=== PATIENT | female | born 1940 | race Caucasian/White ===

== ENCOUNTER 2016-04-23 16:51 | Inpatient (IN) | payer OTHER, BC ==
[2016-04-23 18:42] LABS: MCH 30.9 pg (25.7-33.7); MEAN CELL VOLUME 93.5 fl (80-96); PLATELET COUNT 286 K/MM3 (134-434); RDW 13.8 % (11.6-15.6); WHITE BLOOD COUNT 14.5 K/mm3 (4.0-10.0)
[2016-04-23 18:48] LABS: INR 1.25 (0.82-1.09); PROTHROMBIN TIME (PATIENT) 13.8 SEC (9.98-11.88)
[2016-04-23 18:51] LABS: ACTIVATED PTT 34.2 SECONDS (26.9-34.4)
[2016-04-23 19:06] LABS: ALBUMIN 2.7 g/dl (3.4-5.0); ANION GAP 14 (8-16); BILIRUBIN,TOTAL 0.6 mg/dL (0.2-1.0); CO2 24 mmol/L (21-32); CREATININE 1.1 mg/dL (0.55-1.02); GLUCOSE,RANDOM 81 mg/dL (74-106); SGOT/AST 56 U/L (15-37); SGPT/ALT 41 U/L (12-78)
[2016-04-23 19:09] LABS: ALK PHOS 210 U/L (45-117); TROPONIN I < 0.02 ng/ml (0.00-0.05); URINE APPEARANCE CLEAR; URINE BILIRUBIN NEGATIVE (NEGATIVE); URINE BLOOD NEGATIVE (NEGATIVE); URINE COLOR YELLOW; URINE GLUCOSE (UA) NEGATIVE (NEGATIVE); URINE KETONE TRACE (NEGATIVE); URINE NITRITE NEGATIVE (NEGATIVE); URINE UROBILINOGEN 2.0 E.U/dl E.U./dl (0.2-1.0)
[2016-04-23 19:10] LABS: URINE LEUK ESTERASE 2+ (NEGATIVE); URINE PROTEIN 1+ (NEGATIVE)
[2016-04-23 19:15] LABS: URINE RBC 6 /hpf (0-3); URINE WBC 10 /hpf (3-5)
[2016-04-23 19:33] LABS: PLATELET ESTIMATE ADEQUATE (NORMAL)
[2016-04-23 19:34] LABS: TOXIC GRANULATION 1+
[2016-04-23] MEDS ORDERED: VANCOMYCIN 1,250 MG in DEXTROSE 5%-WATER - 250 ML IVPB ONE (19:34)
[2016-04-23] MEDS ORDERED: POTASSIUM CHLORIDE 10 MEQ in SODIUM CHLORIDE 1,000 ML IVPB SCH (20:00)
--- NOTE | 2016-04-23 20:07 | PDOC ---
History of Present Illness - General Chief Complaint: Respiratory Stated Complaint: PCP SENT/SHORTNESS OF BREATH Time Seen by Provider: 04/23/16 16:57 - History of Present Illness Initial Comments: 04/23/16 19:53 CHIEF COMPLAINT: cough, fever x 4 days HISTORY OF PRESENT ILLNESS: 76 yo F with hx of HTN, HLD, and "arrhythmia" was sent to ED by PCP for c/o of cough, body ache, and fever x 4 days. Patient states she has "chronic post nasal drip" and cough but she has had a "mild fever " between ranges of 98.9F to 100.1F over the past 4 days. She states that she and her are "really involved in the community" and were "running around like crazy" last week. She went to sleep "exhausted" early on Thursday and when she woke up on Thursday she started feeling generalized body aches and discomfort. 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 She was seen by her PCP Dr. Nubia Devine and given ceforuxime and azithromycin and told that if her symptoms did not improve in 24 hours that she would need to come to the ER. She reports no relief of her symptoms and so was instructed to come here today. PAST MEDICAL HISTORY: as per HPI FAMILY HISTORY: Denies SOCIAL HISTORY: Lives at home with . Current smoker, 10 cigs daily. Denies alcohol, illicit drug use. SURGICAL HISTORY: gallbladder, tonsillectomy ALLERGIES: No known drug allergies REVIEW OF SYSTEMS General/Constitutional: Fever x 4 days, generalized weakness/body aches. HEENT: Denies change in vision. Denies ear pain or discharge. Denies sore throat. Cardiovascular: Denies chest pain or shortness of breath. Respiratory: Chronic cough. Denies wheezing, or hemoptysis. Gastrointestinal: Denies nausea, vomiting, diarrhea or constipation. Denies rectal bleeding. Genitourinary: Denies dysuria, frequency, or change in urination. Musculoskeletal: Denies joint or muscle swelling or pain. Denies neck or back pain. Skin: Denies rash or easy bruising. Neurologic: Headache. Denies vertigo, loss of consciousness, or loss of sensation. PHYSICAL EXAM General Appearance: Well-appearing, appropriately dressed. No apparent distress , no intoxication. HEENT: EOMI, PERRLA, normal ENT inspection, normal voice, TMs normal, pharynx normal. No conjunctival pallor. No photophobia, scleral icterus. Neck: Supple. Trachea midline. No tenderness, rigidity, carotid bruit, stridor , lymphadenopathy, or thyromegaly. Respiratory/Chest: Crackles to R lower lobe.No shortness of breath, chest tenderness, respiratory distress, accessory muscle use. No rales, stridor, wheezing, dullness. Cardiovascular: RRR. S1, S2. No JVD, murmur, bradycardia, tachycardia. Vascular Pulses: Dorsalis-Pedis (R): 2+, Dorsalis-Pedis (L): 2+ Gastrointestinal/Abdominal: Normal bowel sounds. Abdomen soft, non-distended. No tenderness or rebound tenderness. No organomegaly, pulsatile mass, guarding , hernia, hepatomegaly, splenomegaly. Lymphatic: No adenopathy, tenderness. Musculoskeletal/Extremities: Normal inspection. FROM of all extremities, normal capillary refill. Pelvis Stable. No CVA tenderness. No tenderness to extremities, pedal edema, swelling, erythema or deformity. Integumentary: Appropriate color, dry, warm. No cyanosis, erythema, jaundice or rash Neurologic: auto washer II-XII intact. Fully oriented, alert. Appropriate mood/affect. Motor strength 5/5. No appreciable EOM palsy, facial droop or sensory deficit. 04/23/16 20:17 04/23/16 20:23 Past History - Past Medical History Allergies/Adverse Reactions: Allergies Allergy/AdvReac Type Severity Reaction Status Date / Time gatifloxacin [From Tequin] Allergy Verified 04/23/16 16:55 meperidine HCl [From Demerol] Allergy Verified 04/23/16 16:55 Home Medications: Ambulatory Orders Alpha Lipoic Acid 200 mg PO HS 06/26/15 Aspirin [ASA -] 81 mg PO DAILY 06/26/15 Atorvastatin Ca [Lipitor] 20 mg PO HS 06/26/15 Cholecalciferol (Vitamin D3) [Vitamin D3 -] 1,000 unit PO DAILY 06/26/15 Cinnamon Bark [Cinnamon] 500 mg PO BID 06/26/15 Levothyroxine [Synthroid -] 75 mcg PO DAILY 06/26/15 Levothyroxine [Synthroid -] 88 mcg PO DAILY 06/26/15 Melatonin 3 mg PO HS 06/26/15 Metoprolol Succinate [Toprol XL -] 100 mg PO BID 06/26/15 Multivit-Min/FA/Lycopen/Lutein [Centrum Silver Tablet] 1 each PO DAILY 06/26/15 Lactobacillus Acidophilus [Bacid -] 1 tab PO DAILY tab 04/28/16 Levofloxacin [Levaquin -] 500 mg PO DAILY #7 tablet 04/28/16 Diabetes: Yes (diet controlled) HTN: Yes Hypercholesterolemia: Yes Thyroid Disease: Yes - Surgical History Cholecystectomy: Yes - Psycho/Social/Smoking Cessation Hx Anxiety: No Suicidal Ideation: No Smoking History: Current every day smoker Have you smoked in the past 12 months: Yes Number of Cigarettes Smoked Daily: 10 Information on smoking cessation initiated: Yes 'Breaking Loose' booklet given: 04/23/16 Hx Alcohol Use: No Drug/Substance Use Hx: No Substance Use Type: None *Physical Exam - Vital Signs Last Vital Signs Temp Pulse Resp BP Pulse Ox 99.9 F H 128 H 20 119/68 93 L 04/23/16 16:55 04/23/16 16:55 04/23/16 16:55 04/23/16 16:55 04/23/16 16:55 ED Treatment Course - LABORATORY CBC & Chemistry Diagram: 04/29/16 06:45 04/29/16 06:45 - ADDITIONAL ORDERS Additional order review: Laboratory Results 04/23/16 04/23/16 04/23/16 17:45 17:45 17:45 INR PTT (Actin FS) Sodium 132 L Potassium 3.3 L Chloride 94 L Carbon Dioxide 24 Anion Gap 14 BUN 19 H D Creatinine 1.1 H D Creat Clearance w eGFR 48.04 Random Glucose 81 D Lactic Acid 2.305 H* Calcium 8.0 L Total Bilirubin 0.6 AST 56 H D ALT 41 D Alkaline Phosphatase 210 H D Creatine Kinase 48 Troponin I < 0.02 Total Protein 7.0 Albumin 2.7 L D Urine Color Yellow Urine Appearance Clear Urine pH 6.0 Ur Specific [place] 1.019 Urine Protein 1+ H Urine Glucose (UA) Negative Urine Ketones Trace H Urine Blood Negative Urine Nitrite Negative Urine Bilirubin Negative Urine Urobilinogen 2.0 e.u/dl H Ur Leukocyte Esterase 2+ H Urine RBC 6 Urine WBC 10 Ur Epithelial Cells Rare 04/23/16 17:45 INR 1.25 H PTT (Actin FS) 34.2 Sodium Potassium Chloride Carbon Dioxide Anion Gap BUN Creatinine Creat Clearance w eGFR Random Glucose Lactic Acid Calcium Total Bilirubin AST ALT Alkaline Phosphatase Creatine Kinase Troponin I Total Protein Albumin Urine Color Urine Appearance Urine pH Ur Specific [place] Urine Protein Urine Glucose (UA) Urine Ketones Urine Blood Urine Nitrite Urine Bilirubin Urine Urobilinogen Ur Leukocyte Esterase Urine RBC Urine WBC Ur Epithelial Cells 04/23/16 17:00 Influenza Types A,B Antigen (SIMON) - Final Nasopharyngeal Swab - Final 04/23/16 17:45 RBC 4.25 MCV 93.5 MCHC 33.0 RDW 13.8 MPV 9.0 Neutrophils % 78.0 D Lymphocytes % 7.0 L D Monocytes % 5.0 Basophils % 1.0 Medical Decision Making - Medical Decision Making 04/23/16 20:22 76 yo F with hx of HTN, HLD, and "arrhythmia" was sent to ED by PCP for c/o of cough, body ache, and fever x 4 days. -septic workup ordered in E Labs: CBC - WBC 14.7, lactic acid 2.3, K+ 3.3 -Vanc, Zosyn IVPB for sepsis coverage. -IVF - NS + 20K @ 75cc EKG - NSR with PAC, read by myself and MD Hargrove 04/23/16 20:28 CXR suggestive of RLL pneumonia. Patient has already taken one dose of cefuroxime today. Zosyn d/c, will start Ceftriaxone with po azithromycin. Discussed case with patient's PCP Nilson who accepts patient for inpatient admission. Patient admitted to med/surg. *DC/Admit/Observation/Transfer Diagnosis at time of Disposition: Pneumonia Qualifiers: Pneumonia type: due to unspecified organism Laterality: right Lung location: lower lobe of lung Qualified Code(s): J18.9 - Pneumonia, unspecified organism - Discharge Dispostion Disposition: HOME Condition at time of disposition: Improved Admit: Yes - Prescriptions
--- NOTE | 2016-04-23 20:11 | PDOC ---
*Physical Exam - Vital Signs Last Vital Signs Temp Pulse Resp BP Pulse Ox 99.9 F H 128 H 20 119/68 93 L 04/23/16 16:55 04/23/16 16:55 04/23/16 16:55 04/23/16 16:55 04/23/16 16:55 ED Treatment Course - LABORATORY CBC & Chemistry Diagram: 04/23/16 17:45 04/23/16 17:45 - ADDITIONAL ORDERS Additional order review: Laboratory Results 04/23/16 04/23/16 04/23/16 17:45 17:45 17:45 INR PTT (Actin FS) Sodium 132 L Potassium 3.3 L Chloride 94 L Carbon Dioxide 24 Anion Gap 14 BUN 19 H D Creatinine 1.1 H D Creat Clearance w eGFR 48.04 Random Glucose 81 D Lactic Acid 2.305 H* Calcium 8.0 L Total Bilirubin 0.6 AST 56 H D ALT 41 D Alkaline Phosphatase 210 H D Creatine Kinase 48 Troponin I < 0.02 Total Protein 7.0 Albumin 2.7 L D Urine Color Yellow Urine Appearance Clear Urine pH 6.0 Ur Specific [place] 1.019 Urine Protein 1+ H Urine Glucose (UA) Negative Urine Ketones Trace H Urine Blood Negative Urine Nitrite Negative Urine Bilirubin Negative Urine Urobilinogen 2.0 e.u/dl H Ur Leukocyte Esterase 2+ H Urine RBC 6 Urine WBC 10 Ur Epithelial Cells Rare 04/23/16 17:45 INR 1.25 H PTT (Actin FS) 34.2 Sodium Potassium Chloride Carbon Dioxide Anion Gap BUN Creatinine Creat Clearance w eGFR Random Glucose Lactic Acid Calcium Total Bilirubin AST ALT Alkaline Phosphatase Creatine Kinase Troponin I Total Protein Albumin Urine Color Urine Appearance Urine pH Ur Specific [place] Urine Protein Urine Glucose (UA) Urine Ketones Urine Blood Urine Nitrite Urine Bilirubin Urine Urobilinogen Ur Leukocyte Esterase Urine RBC Urine WBC Ur Epithelial Cells 04/23/16 17:00 Influenza Types A,B Antigen (SIMON) - Final Nasopharyngeal Swab - Final 04/23/16 17:45 RBC 4.25 MCV 93.5 MCHC 33.0 RDW 13.8 MPV 9.0 Neutrophils % 78.0 D Lymphocytes % 7.0 L D Monocytes % 5.0 Basophils % 1.0 Medical Decision Making - Medical Decision Making 04/23/16 20:11 agree with care from KANDY Guillaume *DC/Admit/Observation/Transfer Diagnosis at time of Disposition: Pneumonia
[2016-04-23] MEDS: SODIUM CHLORIDE 0.9%/KCL 1,000 ML IV SCH (20:47)
[2016-04-23] MEDS ORDERED: ACETAMINOPHEN 1000 MG/100 ML VIAL (NON FORMULARY) IVPB ONE (21:30)
[2016-04-23] MEDS ORDERED: ACETAMINOPHEN INJECTION 100 ML IVPB ONE (21:36)
[2016-04-23] MEDS ORDERED: AMPICILLIN NA/SULBACTAM NA 3 GM in SODIUM CHLORIDE 100 ML IVPB ONE (21:47)
[2016-04-23] MEDS ORDERED: AZITHROMYCIN 250 MG TABLET (FP) PO ONE (22:05)
[2016-04-23] MEDS ORDERED: ACETAMINOPHEN 325 MG TABLET (FP) PO PRN (22:37)
[2016-04-23] MEDS ORDERED: AZITHROMYCIN 250 MG TABLET (FP) ONE (23:23)
[2016-04-23] MEDS: D5-1/2NS+20 MEQ KCL - 1,000 ML IV SCH (23:39)
[2016-04-24] MEDS: ALBUTEROL SO4 0.083% IH SOL 2.5 MG/3 ML VIAL.NEB. NEB SCH ×3 (00:03→23:26)
[2016-04-24] MEDS ORDERED: AMPICILLIN NA/SULBACTAM NA 1.5 GM in SODIUM CHLORIDE 100 ML IVPB SCH (03:00)
[2016-04-24] MEDS: AMPICILLIN NA/SULBACTAM NA 1.5 GM/100 ML PRE-DOCKED IVPB SCH ×3 (04:15→15:49)
[2016-04-24 05:54] VITALS: BMI 26.6
[2016-04-24] MEDS: LEVOTHYROXINE NA 75 MCG TABLET (FP) PO SCH (06:30)
--- NOTE | 2016-04-24 07:18 | HP ---
Admitting History and Physical - Admission History of Present Illness: 76 yo F with hx of HTN, HLD, and "arrhythmia" was sent to ED by PCP for c/o of cough, body ache, and fever x 4 days. Patient states she has "chronic post nasal drip" and cough but she has had a "mild fever" between ranges of 98.9F to 100.1F over the past 4 days. She states that she and her are "really involved in the community" and were "running around like crazy" last week. She went to sleep "exhausted" early on Thursday and when she woke up on Thursday she started feeling generalized body aches and discomfort. 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 She was seen in office and given ceftin and azithromycin and told that if her symptoms did not improve in 24 hours tand was sent to the ER. - Past Medical History Cardiovascular: Yes: HTN, Hyperlipdemia Pulmonary: No: Asthma Gastrointestinal: No: Cancer Endocrine: Yes: Diabetes Mellitus, Hypothyroidism - Smoking History Smoking history: Current every day smoker Have you smoked in the past 12 months: Yes Aproximately how many cigarettes per day: 10 - Alcohol/Substance Use Hx Alcohol Use: No Home Medications - Allergies Allergies/Adverse Reactions: Allergies Allergy/AdvReac Type Severity Reaction Status Date / Time gatifloxacin [From Tequin] Allergy Verified 04/23/16 16:55 meperidine HCl [From Demerol] Allergy Verified 04/23/16 16:55 - Home Medications Home Medications: Ambulatory Orders Alpha Lipoic Acid 200 mg PO DAILY 06/26/15 Aspirin [ASA -] 81 mg PO DAILY 06/26/15 Atorvastatin Ca [Lipitor] 20 mg PO HS 06/26/15 Cholecalciferol (Vitamin D3) [Vitamin D3 -] 1,000 unit PO DAILY 06/26/15 Cinnamon Bark [Cinnamon] 2,000 mg PO DAILY 06/26/15 Hydrochlorothiazide [Hctz -] 25 mg PO DAILY 06/26/15 Levothyroxine [Synthroid -] 75 mcg PO DAILY 06/26/15 Levothyroxine [Synthroid -] 75 mcg PO DAILY 06/26/15 Melatonin 3 mg PO HS 06/26/15 Metoprolol Succinate [Toprol Xl -] 100 mg PO BID 06/26/15 Multivit-Min/FA/Lycopen/Lutein [Centrum Silver Tablet] 1 each PO DAILY 06/26/15 Quinapril HCl [Accupril] 40 mg PO DAILY 06/26/15 Review of Systems - Review of Systems Constitutional: reports: Fever, Malaise, Weakness Cardiovascular: denies: Chest Pain, Edema Respiratory: reports: Cough, SOB on Exertion Gastrointestinal: denies: Abdominal Pain Genitourinary: reports: No Symptoms Physical Examination Vital Signs: Vital Signs Temperature 98.2 F 04/24/16 02:37 Pulse Rate 73 04/24/16 02:37 Respiratory Rate 18 04/24/16 02:37 Blood Pressure 124/63 04/24/16 02:37 O2 Sat by Pulse Oximetry (%) 93 L 04/24/16 02:37 Cardiovascular: Yes: Regular Rate and Rhythm Respiratory: Yes: Diminished, On Nasal O2, Rales Gastrointestinal: Yes: Normal Bowel Sounds, Soft Edema: No Imaging - Results X-ray: Report Reviewed Problem List - Problems (1) Pneumonia Assessment/Plan: IV ABX NEBS ID CONSULT Code(s): J18.9 - PNEUMONIA, UNSPECIFIED ORGANISM Qualifiers: Pneumonia type: due to unspecified organism Laterality: right Lung location: lower lobe of lung Qualified Code(s): J18.9 - Pneumonia, unspecified organism (2) HTN (hypertension) Assessment/Plan: MONITOR Code(s): I10 - ESSENTIAL (PRIMARY) HYPERTENSION (3) Hypokalemia Assessment/Plan: RPT Code(s): E87.6 - HYPOKALEMIA (4) Lactic acid acidosis Assessment/Plan: IVF ABX Code(s): E87.2 - ACIDOSIS
[2016-04-24 08:26] LABS: BASOPHIL 0.7 % (0-2.0); MCH 31.8 pg (25.7-33.7); MCHC 34.1 g/dl (32.0-36.0); MEAN CELL VOLUME 93.4 fl (80-96); MEAN PLT VOLUME 8.3 fl (7.5-11.1); NEUTROPHILS 71.7 % (42.8-82.8); PLATELET COUNT 225 K/MM3 (134-434); RDW 13.7 % (11.6-15.6); WHITE BLOOD COUNT 10.1 K/mm3 (4.0-10.0)
[2016-04-24 09:00] LABS: CALCIUM 7.4 mg/dL (8.5-10.1)
[2016-04-24 09:08] LABS: ALBUMIN 2.1 g/dl (3.4-5.0); ALK PHOS 143 U/L (45-117); ANION GAP 11 (8-16); BILIRUBIN,TOTAL 0.6 mg/dL (0.2-1.0); CO2 25 mmol/L (21-32); CREATININE 0.8 mg/dL (0.55-1.02); GLUCOSE,RANDOM 61 mg/dL (74-106); MAGNESIUM 2.1 mg/dL (1.8-2.4); SGOT/AST 45 U/L (15-37); SGPT/ALT 30 U/L (12-78); TOT PROT 5.5 g/dl (6.4-8.2)
[2016-04-24] MEDS ORDERED: AZITHROMYCIN IVPB 500 MG in DEXTROSE 5%-WATER - 250 ML IVPB SCH (10:00)
[2016-04-24] MEDS: METOPROLOL SUCCINATE 100 MG TAB.SR.24H (FP) PO SCH ×2 (10:28→22:18)
[2016-04-24] MEDS: ASPIRIN 81 MG CHEWABLE TABLETS PO SCH (10:28)
[2016-04-24] MEDS: AZITHROMYCIN IVPB 500 MG/250 ML D5W PRE-DOCKED IVPB SCH (10:28)
[2016-04-24] MEDS: HEPARIN NA (PORCINE) 5,000 UNITS/ML 1ML VIAL SQ SCH ×2 (10:28→22:18)
[2016-04-24] MEDS: KCL 10 MEQ IVPB 100 ML IVPB SCH ×2 (13:00→15:50)
--- NOTE | 2016-04-24 14:44 | EKG ---
Test Reason : Blood Pressure : / mmHG Vent. Rate : 078 BPM Atrial Rate : 078 BPM P-R Int : 150 ms QRS Dur : 102 ms QT Int : 412 ms P-R-T Axes : 012 039 040 degrees QTc Int : 469 ms SINUS RHYTHM WITH PREMATURE ATRIAL COMPLEXES OTHERWISE NORMAL ECG WHEN COMPARED WITH ECG OF 23-APR-2016 23:55, PREMATURE ATRIAL COMPLEXES ARE NOW PRESENT Confirmed by JAYLYN HUSSEIN, KARYNA ([id number]) on 04/24/2016 2:44:15 PM Referred By: TYRA SCALES Confirmed By:KARYNA DE LA O MD
--- NOTE | 2016-04-24 15:00 | EKG ---
Test Reason : Blood Pressure : / mmHG Vent. Rate : 100 BPM Atrial Rate : 100 BPM P-R Int : 138 ms QRS Dur : 100 ms QT Int : 362 ms P-R-T Axes : -01 018 045 degrees QTc Int : 466 ms SINUS RHYTHM WITH PREMATURE ATRIAL COMPLEXES OTHERWISE NORMAL ECG WHEN COMPARED WITH ECG OF 03-APR-2013 11:01, PREMATURE VENTRICULAR COMPLEXES ARE NO LONGER PRESENT VENT. RATE HAS INCREASED BY 42 BPM Confirmed by JAYLYN HUSSEIN, KARYNA ([id number]) on 04/24/2016 3:00:29 PM Referred By: Confirmed By:KARYNA DE LA O MD
--- NOTE | 2016-04-24 17:08 | PN ---
Progress Note (short form) - Note Progress Note: ID Consult dictated R sided pneumonia- likely recent viral syndrome with superimposed bacterial pneumonia Possible sepsis secondary to pneumonia Tobacco use Await cultures, legionella/ pneumococcal ag Empiric zithromax/ ceftriaxone Would obtain CT in this pt with moderately heavy tobacco use
--- NOTE | 2016-04-24 17:56 | CONS ---
DATE OF CONSULTATION: DATE OF DICTATION: 04/24/2016 INFECTIOUS DISEASE CONSULTATION HISTORY OF PRESENT ILLNESS: The patient is a 76-year-old female active smoker evaluated for pneumonia. The patient states she began to feel unwell approximately 1 week ago on ThursdayApril 18. She experienced profound weakness and fatigue. She subsequently developed an upper respiratory tract syndrome with dry cough. She experienced some low grade fever and body ache. She was seen as an outpatient where an influenza swab was performed and was negative. She was prescribed oral Zithromax and cefuroxime which she took for approximately 1-2 days; however, her condition worsened. She presented to the emergency room where a chest x-ray showed a right sided infiltrate. Patient reports cough which is dry. She denies any sputum production or hemoptysis. No pleuritic type chest pain. She has low grade fever. The patient lives at home with her significant other who is in good health without respiratory tract illness. 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 She is an active smoker, smoking approximately 8 to 10 cigarettes a day, denies any recent travel. She is up to date with respect to influenza and pneumococcal vaccines. PAST MEDICAL HISTORY: Includes hypertension, hyperlipidemia. PAST SURGICAL HISTORY: Status post cholecystectomy. ALLERGIES: MEPERIDINE (hallucinations during childbirth), and GATIFLOXACIN (hypoglycemia). MEDICATION: Aspirin, Lipitor, hydrochlorothiazide, Synthroid, Toprol, Accupril. SOCIAL HISTORY: As per HPI. LABORATORY DATA: White count on admission 14.5, presently 10.1. Hematocrit 33.6, platelet count 225, creatinine 0.8. PHYSICAL EXAMINATION: General: She is awake and alert. She is in no acute respiratory distress . She is congested. Vital signs: Temperature 99.3, blood pressure 124/66, pulse 80 regular, respirations 18 per minute, breathing is nonlabored. HEENT: Sclerae anicteric. Cardiovascular: Heart sounds S1, S2. Respiratory: Lungs crepitations right, mid, and lower lung field. No wheezing or rhonchi. Abdomen: Soft. No tenderness elicited. No mass, rebound, or rigidity. Extremities: Negative for edema. IMPRESSION: 1. Right sided pneumonia, likely recent viral syndrome with superimposed bacterial pneumonia. 2. Possible sepsis secondary to pneumonia. 3. Tobacco use. Await sputum and blood cultures. Obtain legionella and pneumococcal antigens. Empiric antibiotic coverage with Zithromax and ceftriaxone. Would obtain a CAT scan in this patient with moderately heavy tobacco use. Thank you for the kind referral. TYRA TAYLOR M.D. [id number]
[2016-04-24] MEDS: CEFTRIAXONE 100 ML IVPB SCH (18:12)
[2016-04-24] MEDS ORDERED: PIPERACILLIN/TAZOB 3.375 GM/50 ML PRE-DOCKED IVPB ONE (19:35)
[2016-04-24] MEDS: ATORVASTATIN CA 20 MG TABLET (FP) PO SCH (22:17)
[2016-04-24] MEDS: SODIUM CHLORIDE 0.9%/KCL 1,000 ML IV SCH (22:54)
[2016-04-25] MEDS: LEVOTHYROXINE NA 75 MCG TABLET (FP) PO SCH (06:54)
[2016-04-25] MEDS: ALBUTEROL SO4 0.083% IH SOL 2.5 MG/3 ML VIAL.NEB. NEB SCH ×3 (07:31→17:28)
[2016-04-25] MEDS: AZITHROMYCIN IVPB 500 MG/250 ML D5W PRE-DOCKED IVPB SCH (10:47)
[2016-04-25] MEDS: ASPIRIN 81 MG CHEWABLE TABLETS PO SCH (10:48)
[2016-04-25] MEDS: HEPARIN NA (PORCINE) 5,000 UNITS/ML 1ML VIAL SQ SCH ×2 (10:48→21:15)
[2016-04-25] MEDS: METOPROLOL SUCCINATE 100 MG TAB.SR.24H (FP) PO SCH ×2 (10:48→21:15)
[2016-04-25] MEDS: CEFTRIAXONE 100 ML IVPB SCH (10:48)
[2016-04-25] MEDS ORDERED: BENZOCAINE/MENTH/CETYLPYRD CL 1 EACH LOZENGE MM PRN (11:58)
--- NOTE | 2016-04-25 12:02 | PN ---
Progress Note, Physician History of Present Illness: C/O COUGH - Current Medication List Current Medications: Active Medications Acetaminophen (Tylenol -) 650 mg PO Q4H PRN PRN Reason: FEVER OR PAIN Albuterol Sulfate (Ventolin 0.083% Nebulizer Soln -) 1 amp NEB QIDR [facility] Last Admin: 04/25/16 07:31 Dose: 1 amp Aspirin (Asa -) 81 mg PO DAILY [facility] Last Admin: 04/25/16 10:48 Dose: 81 mg Atorvastatin Calcium (Lipitor -) 20 mg PO HS [facility] Last Admin: 04/24/16 22:17 Dose: 20 mg Azithromycin (Zithromax 500mg Ivpb (Pre-Docked)) 500 mg IVPB DAILY [facility] Last Admin: 04/25/16 10:47 Dose: 500 mg Benzocaine/Menthol (Cepacol Lozenge -) 1 each MM PRN PRN PRN Reason: SORE THROAT Heparin Sodium (Porcine) (Heparin -) 5,000 unit SQ BID [facility] Last Admin: 04/25/16 10:48 Dose: 5,000 unit Potassium Chloride/Sodium Chloride (Ns+20 Meq Kcl -) 1,000 mls @ 75 mls/hr IV ASDIR [facility] Last Admin: 04/24/16 22:54 Dose: 75 mls/hr Potassium Chloride/Dextrose/Sod Cl (D5-1/2ns+20 Meq Kcl -) 1,000 mls @ 75 mls/ hr IV ASDIR [facility] Last Admin: 04/23/16 23:39 Dose: Not Given Ceftriaxone Sodium (Rocephin 2gm Ivpb (Pre-Docked)) 100 mls @ 200 mls/hr IVPB DAILY [facility] Last Admin: 04/25/16 10:48 Dose: 200 mls/hr Lactobacillus Acidophilus (Bacid -) 1 tab PO DAILY [facility] Levothyroxine Sodium (Synthroid -) 75 mcg PO DAILY@0700 [facility] Last Admin: 04/25/16 06:54 Dose: 75 mcg Metoprolol Succinate (Toprol Xl -) 100 mg PO BID [facility] Last Admin: 04/25/16 10:48 Dose: 100 mg - Objective Vital Signs: Vital Signs Temperature 98.5 F 04/25/16 06:50 Pulse Rate 78 04/25/16 06:50 Respiratory Rate 20 04/25/16 06:50 Blood Pressure 119/70 04/25/16 06:50 O2 Sat by Pulse Oximetry (%) 95 04/24/16 21:00 Cardiovascular: Yes: Regular Rate and Rhythm Respiratory: Yes: Diminished, Rales, Rhonchi Gastrointestinal: Yes: Normal Bowel Sounds, Soft Labs: CBC, BMP 04/24/16 07:00 04/24/16 07:00 INR, PTT INR 1.25 (0.82-1.09) H 04/23/16 17:45 Problem List - Problems (1) Pneumonia Assessment/Plan: IV ABX NEBS ID CONSULT CT OF CHEST Code(s): J18.9 - PNEUMONIA, UNSPECIFIED ORGANISM Qualifiers: Pneumonia type: due to unspecified organism Laterality: right Lung location: lower lobe of lung Qualified Code(s): J18.9 - Pneumonia, unspecified organism (2) HTN (hypertension) Assessment/Plan: MONITOR Code(s): I10 - ESSENTIAL (PRIMARY) HYPERTENSION (3) Hypokalemia Assessment/Plan: RPT Code(s): E87.6 - HYPOKALEMIA (4) Lactic acid acidosis Assessment/Plan: IVF ABX Code(s): E87.2 - ACIDOSIS (5) Sepsis Assessment/Plan: ABX MONITOR Code(s): A41.9 - SEPSIS, UNSPECIFIED ORGANISM
--- NOTE | 2016-04-25 12:05 | PN ---
Progress Note, Physician History of Present Illness: Still with cough- whitish sputum No c/o chest pain/ dyspnea No c/o fever/chills CT shows patchy R consolidation - Current Medication List Current Medications: Active Medications Acetaminophen (Tylenol -) 650 mg PO Q4H PRN PRN Reason: FEVER OR PAIN Albuterol Sulfate (Ventolin 0.083% Nebulizer Soln -) 1 amp NEB QIDR [facility] Last Admin: 04/25/16 07:31 Dose: 1 amp Aspirin (Asa -) 81 mg PO DAILY [facility] Last Admin: 04/25/16 10:48 Dose: 81 mg Atorvastatin Calcium (Lipitor -) 20 mg PO HS [facility] Last Admin: 04/24/16 22:17 Dose: 20 mg Azithromycin (Zithromax 500mg Ivpb (Pre-Docked)) 500 mg IVPB DAILY [facility] Last Admin: 04/25/16 10:47 Dose: 500 mg Benzocaine/Menthol (Cepacol Lozenge -) 1 each MM PRN PRN PRN Reason: SORE THROAT Heparin Sodium (Porcine) (Heparin -) 5,000 unit SQ BID [facility] Last Admin: 04/25/16 10:48 Dose: 5,000 unit Potassium Chloride/Sodium Chloride (Ns+20 Meq Kcl -) 1,000 mls @ 75 mls/hr IV ASDIR [facility] Last Admin: 04/24/16 22:54 Dose: 75 mls/hr Potassium Chloride/Dextrose/Sod Cl (D5-1/2ns+20 Meq Kcl -) 1,000 mls @ 75 mls/ hr IV ASDIR [facility] Last Admin: 04/23/16 23:39 Dose: Not Given Ceftriaxone Sodium (Rocephin 2gm Ivpb (Pre-Docked)) 100 mls @ 200 mls/hr IVPB DAILY [facility] Last Admin: 04/25/16 10:48 Dose: 200 mls/hr Levothyroxine Sodium (Synthroid -) 75 mcg PO DAILY@0700 [facility] Last Admin: 04/25/16 06:54 Dose: 75 mcg Metoprolol Succinate (Toprol Xl -) 100 mg PO BID [facility] Last Admin: 04/25/16 10:48 Dose: 100 mg - Objective Vital Signs: Vital Signs Temperature 98.5 F 04/25/16 06:50 Pulse Rate 78 04/25/16 06:50 Respiratory Rate 20 04/25/16 06:50 Blood Pressure 119/70 04/25/16 06:50 O2 Sat by Pulse Oximetry (%) 95 04/24/16 21:00 Constitutional: Yes: No Distress Eyes: Yes: Conjunctiva Clear Cardiovascular: Yes: Regular Rate and Rhythm, S1, S2 Respiratory: Yes: Other (+ crepitations R lung field; L lung clear) Gastrointestinal: Yes: Normal Bowel Sounds, Soft. No: Tenderness Edema: Yes Edema: LLE: 1+, RLE: 1+ Labs: CBC, BMP 04/24/16 07:00 04/24/16 07:00 INR, PTT INR 1.25 (0.82-1.09) H 04/23/16 17:45 Assessment/Plan RLL community acquired v. atypical pneumonia Possible sepsis secondary to pneumonia Tobacco use Await c/s Continue zithromax/ ceftriaxone
[2016-04-25] MEDS: LACTOBACILLUS ACIDOPHILUS 1 EACH TAB (FP) PO SCH (15:12)
[2016-04-25] MEDS: SODIUM CHLORIDE 0.9%/KCL 1,000 ML IV SCH ×2 (15:14→21:15)
[2016-04-25] MEDS: ATORVASTATIN CA 20 MG TABLET (FP) PO SCH (21:15)
[2016-04-26] MEDS: ALBUTEROL SO4 0.083% IH SOL 2.5 MG/3 ML VIAL.NEB. NEB SCH ×4 (00:10→17:54)
[2016-04-26] MEDS: D5-1/2NS+20 MEQ KCL - 1,000 ML IV SCH ×2 (04:00→10:17)
[2016-04-26] MEDS: LEVOTHYROXINE NA 75 MCG TABLET (FP) PO SCH (06:19)
[2016-04-26] MEDS: CEFTRIAXONE 100 ML IVPB SCH (10:13)
[2016-04-26] MEDS: ASPIRIN 81 MG CHEWABLE TABLETS PO SCH (10:13)
[2016-04-26] MEDS: AZITHROMYCIN IVPB 500 MG/250 ML D5W PRE-DOCKED IVPB SCH (10:13)
[2016-04-26] MEDS: HEPARIN NA (PORCINE) 5,000 UNITS/ML 1ML VIAL SQ SCH ×2 (10:13→21:21)
[2016-04-26] MEDS: METOPROLOL SUCCINATE 100 MG TAB.SR.24H (FP) PO SCH ×2 (10:14→21:21)
[2016-04-26] MEDS: LACTOBACILLUS ACIDOPHILUS 1 EACH TAB (FP) PO SCH (10:14)
--- NOTE | 2016-04-26 12:30 | PN ---
Progress Note, Physician History of Present Illness: Feeling better Still congested Less cough No c/o chest pain/ dyspnea Sputum c/s normal harrison - Current Medication List Current Medications: Active Medications Acetaminophen (Tylenol -) 650 mg PO Q4H PRN PRN Reason: FEVER OR PAIN Albuterol Sulfate (Ventolin 0.083% Nebulizer Soln -) 1 amp NEB QIDR [facility] Last Admin: 04/26/16 12:14 Dose: 1 amp Aspirin (Asa -) 81 mg PO DAILY [facility] Last Admin: 04/26/16 10:13 Dose: 81 mg Atorvastatin Calcium (Lipitor -) 20 mg PO HS [facility] Last Admin: 04/25/16 21:15 Dose: 20 mg Azithromycin (Zithromax 500mg Ivpb (Pre-Docked)) 500 mg IVPB DAILY [facility] Last Admin: 04/26/16 10:13 Dose: 500 mg Benzocaine/Menthol (Cepacol Lozenge -) 1 each MM PRN PRN PRN Reason: SORE THROAT Heparin Sodium (Porcine) (Heparin -) 5,000 unit SQ BID [facility] Last Admin: 04/26/16 10:13 Dose: 5,000 unit Potassium Chloride/Sodium Chloride (Ns+20 Meq Kcl -) 1,000 mls @ 75 mls/hr IV ASDIR [facility] Last Admin: 04/25/16 21:15 Dose: 75 mls/hr Potassium Chloride/Dextrose/Sod Cl (D5-1/2ns+20 Meq Kcl -) 1,000 mls @ 75 mls/ hr IV ASDIR [facility] Last Admin: 04/26/16 10:17 Dose: 75 mls/hr Ceftriaxone Sodium (Rocephin 2gm Ivpb (Pre-Docked)) 100 mls @ 200 mls/hr IVPB DAILY [facility] Last Admin: 04/26/16 10:13 Dose: 200 mls/hr Lactobacillus Acidophilus (Bacid -) 1 tab PO DAILY [facility] Last Admin: 04/26/16 10:14 Dose: 1 tab Levothyroxine Sodium (Synthroid -) 75 mcg PO DAILY@0700 [facility] Last Admin: 04/26/16 06:19 Dose: 75 mcg Metoprolol Succinate (Toprol Xl -) 100 mg PO BID [facility] Last Admin: 04/26/16 10:14 Dose: 100 mg - Objective Vital Signs: Vital Signs Temperature 97.6 F 04/26/16 10:00 Pulse Rate 69 04/26/16 10:00 Respiratory Rate 18 04/26/16 10:00 Blood Pressure 119/65 04/26/16 10:00 O2 Sat by Pulse Oximetry (%) 96 04/25/16 20:05 Constitutional: Yes: No Distress Cardiovascular: Yes: Regular Rate and Rhythm, S1, S2 Respiratory: Yes: Other (crepitations R lung field) Gastrointestinal: Yes: Normal Bowel Sounds, Soft Edema: No Labs: CBC, BMP 04/24/16 07:00 04/24/16 07:00 INR, PTT INR 1.25 (0.82-1.09) H 04/23/16 17:45 Assessment/Plan RLL community acquired v. atypical pneumonia -improved Possible sepsis secondary to pneumonia Tobacco use Continue zithromax/ ceftriaxone
--- NOTE | 2016-04-26 13:19 | PN ---
Progress Note, Physician History of Present Illness: C/O COUGH FEELS BETTER - Current Medication List Current Medications: Active Medications Acetaminophen (Tylenol -) 650 mg PO Q4H PRN PRN Reason: FEVER OR PAIN Albuterol Sulfate (Ventolin 0.083% Nebulizer Soln -) 1 amp NEB QIDR [facility] Last Admin: 04/26/16 12:14 Dose: 1 amp Aspirin (Asa -) 81 mg PO DAILY [facility] Last Admin: 04/26/16 10:13 Dose: 81 mg Atorvastatin Calcium (Lipitor -) 20 mg PO HS [facility] Last Admin: 04/25/16 21:15 Dose: 20 mg Azithromycin (Zithromax 500mg Ivpb (Pre-Docked)) 500 mg IVPB DAILY [facility] Last Admin: 04/26/16 10:13 Dose: 500 mg Benzocaine/Menthol (Cepacol Lozenge -) 1 each MM PRN PRN PRN Reason: SORE THROAT Heparin Sodium (Porcine) (Heparin -) 5,000 unit SQ BID [facility] Last Admin: 04/26/16 10:13 Dose: 5,000 unit Potassium Chloride/Sodium Chloride (Ns+20 Meq Kcl -) 1,000 mls @ 75 mls/hr IV ASDIR [facility] Last Admin: 04/25/16 21:15 Dose: 75 mls/hr Potassium Chloride/Dextrose/Sod Cl (D5-1/2ns+20 Meq Kcl -) 1,000 mls @ 75 mls/ hr IV ASDIR [facility] Last Admin: 04/26/16 10:17 Dose: 75 mls/hr Ceftriaxone Sodium (Rocephin 2gm Ivpb (Pre-Docked)) 100 mls @ 200 mls/hr IVPB DAILY [facility] Last Admin: 04/26/16 10:13 Dose: 200 mls/hr Lactobacillus Acidophilus (Bacid -) 1 tab PO DAILY [facility] Last Admin: 04/26/16 10:14 Dose: 1 tab Levothyroxine Sodium (Synthroid -) 75 mcg PO DAILY@0700 [facility] Last Admin: 04/26/16 06:19 Dose: 75 mcg Metoprolol Succinate (Toprol Xl -) 100 mg PO BID [facility] Last Admin: 04/26/16 10:14 Dose: 100 mg - Objective Vital Signs: Vital Signs Temperature 97.6 F 04/26/16 10:00 Pulse Rate 69 04/26/16 10:00 Respiratory Rate 18 04/26/16 10:00 Blood Pressure 119/65 04/26/16 10:00 O2 Sat by Pulse Oximetry (%) 96 04/25/16 20:05 Cardiovascular: Yes: Regular Rate and Rhythm Respiratory: Yes: Rhonchi Gastrointestinal: Yes: Normal Bowel Sounds, Soft Labs: CBC, BMP 04/24/16 07:00 04/24/16 07:00 INR, PTT INR 1.25 (0.82-1.09) H 04/23/16 17:45 Problem List - Problems (1) Pneumonia Assessment/Plan: IV ABX NEBS ID CONSULT CT OF CHEST Code(s): J18.9 - PNEUMONIA, UNSPECIFIED ORGANISM Qualifiers: Pneumonia type: due to unspecified organism Laterality: right Lung location: lower lobe of lung Qualified Code(s): J18.9 - Pneumonia, unspecified organism (2) HTN (hypertension) Assessment/Plan: MONITOR Code(s): I10 - ESSENTIAL (PRIMARY) HYPERTENSION (3) Hypokalemia Assessment/Plan: RPT BMP Code(s): E87.6 - HYPOKALEMIA (4) Lactic acid acidosis Assessment/Plan: IVF ABX Code(s): E87.2 - ACIDOSIS (5) Sepsis Assessment/Plan: ABX MONITOR Code(s): A41.9 - SEPSIS, UNSPECIFIED ORGANISM
[2016-04-26 15:03] LABS: CALCIUM 7.5 mg/dL (8.5-10.1); CREATININE 0.7 mg/dL (0.55-1.02)
--- NOTE | 2016-04-26 21:08 | EKG ---
Test Reason : Blood Pressure : / mmHG Vent. Rate : 086 BPM Atrial Rate : 086 BPM P-R Int : 154 ms QRS Dur : 106 ms QT Int : 396 ms P-R-T Axes : 005 016 031 degrees QTc Int : 473 ms NORMAL SINUS RHYTHM NORMAL ECG WHEN COMPARED WITH ECG OF 23-APR-2016 20:08, PREMATURE ATRIAL COMPLEXES ARE NO LONGER PRESENT Confirmed by BRYCE RANDLE MD ([id number]) on 04/26/2016 9:08:05 PM Referred By: Confirmed By:BRYCE RANDLE MD
[2016-04-26] MEDS: ATORVASTATIN CA 20 MG TABLET (FP) PO SCH (21:21)
[2016-04-27] MEDS: ALBUTEROL SO4 0.083% IH SOL 2.5 MG/3 ML VIAL.NEB. NEB SCH ×5 (00:13→23:34)
[2016-04-27] MEDS: LEVOTHYROXINE NA 75 MCG TABLET (FP) PO SCH (06:07)
[2016-04-27 07:53] LABS: BASOPHIL 1.1 % (0-2.0); EOSINOPHIL 2.9 % (0-4.5); MCH 31.7 pg (25.7-33.7); MCHC 33.9 g/dl (32.0-36.0); MEAN CELL VOLUME 93.4 fl (80-96); MEAN PLT VOLUME 8.1 fl (7.5-11.1); NEUTROPHILS 63.1 % (42.8-82.8); PLATELET COUNT 241 K/MM3 (134-434); RDW 14.1 % (11.6-15.6); WHITE BLOOD COUNT 6.3 K/mm3 (4.0-10.0)
[2016-04-27 08:21] LABS: ANION GAP 7 (8-16); BILIRUBIN,TOTAL 0.4 mg/dL (0.2-1.0); CALCIUM 7.5 mg/dL (8.5-10.1); CO2 25 mmol/L (21-32); CREATININE 0.6 mg/dL (0.55-1.02); GLUCOSE,RANDOM 94 mg/dL (74-106); SGOT/AST 247 U/L (15-37); SGPT/ALT 147 U/L (12-78)
[2016-04-27 08:22] LABS: ALK PHOS 148 U/L (45-117)
--- NOTE | 2016-04-27 09:38 | PN ---
Progress Note, Physician History of Present Illness: C/O COUGH FEELS BETTER - Current Medication List Current Medications: Active Medications Acetaminophen (Tylenol -) 650 mg PO Q4H PRN PRN Reason: FEVER OR PAIN Last Admin: 04/27/16 05:51 Dose: 650 mg Albuterol Sulfate (Ventolin 0.083% Nebulizer Soln -) 1 amp NEB QIDR [facility] Last Admin: 04/27/16 07:20 Dose: 1 amp Aspirin (Asa -) 81 mg PO DAILY [facility] Last Admin: 04/26/16 10:13 Dose: 81 mg Atorvastatin Calcium (Lipitor -) 20 mg PO HS [facility] Last Admin: 04/26/16 21:21 Dose: 20 mg Azithromycin (Zithromax 500mg Ivpb (Pre-Docked)) 500 mg IVPB DAILY [facility] Last Admin: 04/26/16 10:13 Dose: 500 mg Benzocaine/Menthol (Cepacol Lozenge -) 1 each MM PRN PRN PRN Reason: SORE THROAT Heparin Sodium (Porcine) (Heparin -) 5,000 unit SQ BID [facility] Last Admin: 04/26/16 21:21 Dose: 5,000 unit Ceftriaxone Sodium (Rocephin 2gm Ivpb (Pre-Docked)) 100 mls @ 200 mls/hr IVPB DAILY [facility] Last Admin: 04/26/16 10:13 Dose: 200 mls/hr Lactobacillus Acidophilus (Bacid -) 1 tab PO DAILY [facility] Last Admin: 04/26/16 10:14 Dose: 1 tab Levothyroxine Sodium (Synthroid -) 75 mcg PO DAILY@0700 [facility] Last Admin: 04/27/16 06:07 Dose: 75 mcg Metoprolol Succinate (Toprol Xl -) 100 mg PO BID [facility] Last Admin: 04/26/16 21:21 Dose: 100 mg - Objective Vital Signs: Vital Signs Temperature 97.9 F 04/27/16 07:27 Pulse Rate 90 04/27/16 07:27 Respiratory Rate 20 04/27/16 07:27 Blood Pressure 130/68 04/27/16 07:27 O2 Sat by Pulse Oximetry (%) 95 04/26/16 21:00 Respiratory: Yes: Rales (AT RT BASE--IMPROVED AERATION) Gastrointestinal: Yes: Normal Bowel Sounds, Soft. No: Tenderness Labs: CBC, BMP 04/27/16 07:00 04/27/16 07:00 INR, PTT INR 1.25 (0.82-1.09) H 04/23/16 17:45 Problem List - Problems (1) Pneumonia Assessment/Plan: IV ABX NEBS ID CONSULT NOTED CT OF CHEST--C/W PNA Code(s): J18.9 - PNEUMONIA, UNSPECIFIED ORGANISM Qualifiers: Pneumonia type: due to unspecified organism Laterality: right Lung location: lower lobe of lung Qualified Code(s): J18.9 - Pneumonia, unspecified organism (2) HTN (hypertension) Assessment/Plan: MONITOR Code(s): I10 - ESSENTIAL (PRIMARY) HYPERTENSION (3) Hypokalemia Assessment/Plan: RPT BMP--K 4.4 Code(s): E87.6 - HYPOKALEMIA (4) Lactic acid acidosis Assessment/Plan: IVF ABX Laboratory Tests 04/24/16 08:20 Lactic Acid 1.032 Code(s): E87.2 - ACIDOSIS (5) Sepsis Assessment/Plan: IMPROVING ABX MONITOR Code(s): A41.9 - SEPSIS, UNSPECIFIED ORGANISM (6) Abnormal LFTs Assessment/Plan: MAYBE DUE TO ABX MONITOR LFT US Code(s): R79.89 - OTHER SPECIFIED ABNORMAL FINDINGS OF BLOOD CHEMISTRY (7) Anemia Assessment/Plan: R/O HEMOLYSIS VS BLOOD LOSS W/U ORDERED REPEAT Code(s): D64.9 - ANEMIA, UNSPECIFIED
[2016-04-27] MEDS ORDERED: LEVOFLOXACIN 500 MG IVPB 100 ML IVPB SCH (10:00)
[2016-04-27 10:05] LABS: LDH 317 U/L (84-246)
[2016-04-27 10:18] LABS: FERRITIN 935.237 ng/ml (6.9-282.5)
[2016-04-27] MEDS: HEPARIN NA (PORCINE) 5,000 UNITS/ML 1ML VIAL SQ SCH ×2 (10:24→21:25)
[2016-04-27] MEDS: ASPIRIN 81 MG CHEWABLE TABLETS PO SCH (10:24)
[2016-04-27] MEDS: LACTOBACILLUS ACIDOPHILUS 1 EACH TAB (FP) PO SCH (10:24)
[2016-04-27] MEDS: METOPROLOL SUCCINATE 100 MG TAB.SR.24H (FP) PO SCH ×2 (10:24→21:26)
[2016-04-27 14:07] LABS: EOSINOPHIL 1.9 % (0-4.5); MCH 31.7 pg (25.7-33.7); MCHC 33.9 g/dl (32.0-36.0); MEAN CELL VOLUME 93.5 fl (80-96); MEAN PLT VOLUME 7.9 fl (7.5-11.1); NEUTROPHILS 63.9 % (42.8-82.8); PLATELET COUNT 292 K/MM3 (134-434); RDW 14.1 % (11.6-15.6); WHITE BLOOD COUNT 7.2 K/mm3 (4.0-10.0)
--- NOTE | 2016-04-27 17:27 | PN ---
Progress Note, Physician History of Present Illness: OOB in chair + cough, sinus congestion No c/o chest pain or dyspnea Afebrile Worsening anemia and elevated LFTs noted - Current Medication List Current Medications: Active Medications Acetaminophen (Tylenol -) 650 mg PO Q4H PRN PRN Reason: FEVER OR PAIN Last Admin: 04/27/16 05:51 Dose: 650 mg Albuterol Sulfate (Ventolin 0.083% Nebulizer Soln -) 1 amp NEB QIDR [facility] Last Admin: 04/27/16 17:22 Dose: 1 amp Aspirin (Asa -) 81 mg PO DAILY [facility] Last Admin: 04/27/16 10:24 Dose: 81 mg Atorvastatin Calcium (Lipitor -) 20 mg PO HS [facility] Last Admin: 04/26/16 21:21 Dose: 20 mg Benzocaine/Menthol (Cepacol Lozenge -) 1 each MM PRN PRN PRN Reason: SORE THROAT Heparin Sodium (Porcine) (Heparin -) 5,000 unit SQ BID [facility] Last Admin: 04/27/16 10:24 Dose: 5,000 unit Lactobacillus Acidophilus (Bacid -) 1 tab PO DAILY [facility] Last Admin: 04/27/16 10:24 Dose: 1 tab Levothyroxine Sodium (Synthroid -) 75 mcg PO DAILY@0700 [facility] Last Admin: 04/27/16 06:07 Dose: 75 mcg Metoprolol Succinate (Toprol Xl -) 100 mg PO BID [facility] Last Admin: 04/27/16 10:24 Dose: 100 mg - Objective Vital Signs: Vital Signs Temperature 97.8 F 04/27/16 15:25 Pulse Rate 69 04/27/16 15:25 Respiratory Rate 18 04/27/16 15:25 Blood Pressure 147/80 04/27/16 15:25 O2 Sat by Pulse Oximetry (%) 95 04/27/16 09:00 Constitutional: Yes: No Distress Eyes: Yes: Conjunctiva Clear Cardiovascular: Yes: Regular Rate and Rhythm, S1, S2 Respiratory: Yes: Other (+ crepitations R lung field) Gastrointestinal: Yes: Normal Bowel Sounds, Soft. No: Tenderness Edema: No Labs: CBC, BMP 04/27/16 13:45 04/27/16 07:00 INR, PTT INR 1.25 (0.82-1.09) H 04/23/16 17:45 Assessment/Plan RLL community acquired v. atypical pneumonia -improved Possible sepsis secondary to pneumonia Elevated LFTs possible adverse drug reaction Discontinue zithromax/ ceftriaxone Substitute levaquin Repeat LFTs Anemia work up
[2016-04-27] MEDS: LEVOFLOXACIN 500 MG IVPB 100 ML IVPB SCH (18:26)
[2016-04-27] MEDS: ATORVASTATIN CA 20 MG TABLET (FP) PO SCH (21:26)
[2016-04-28 06:06] LABS: SERUM IRON 59 ug/dL (27-139); TOTAL IRON BINDING CAPACITY 406 ug/dL (250-450); UIBC 347 ug/dL (118-369)
[2016-04-28] MEDS: LEVOTHYROXINE NA 75 MCG TABLET (FP) PO SCH (06:28)
[2016-04-28] MEDS: ALBUTEROL SO4 0.083% IH SOL 2.5 MG/3 ML VIAL.NEB. NEB SCH ×3 (07:07→19:15)
[2016-04-28 08:18] LABS: EOSINOPHIL 2.2 % (0-4.5); MCH 31.7 pg (25.7-33.7); MCHC 33.8 g/dl (32.0-36.0); MEAN CELL VOLUME 93.9 fl (80-96); MEAN PLT VOLUME 8.3 fl (7.5-11.1); NEUTROPHILS 70.4 % (42.8-82.8); PLATELET COUNT 303 K/MM3 (134-434); RDW 13.9 % (11.6-15.6); WHITE BLOOD COUNT 7.5 K/mm3 (4.0-10.0)
[2016-04-28 08:59] LABS: ALBUMIN 2.3 g/dl (3.4-5.0); ALK PHOS 158 U/L (45-117); ANION GAP 9 (8-16); BILIRUBIN,TOTAL 0.6 mg/dL (0.2-1.0); CALCIUM 8.3 mg/dL (8.5-10.1); CO2 28 mmol/L (21-32); CREATININE 0.6 mg/dL (0.55-1.02); GLUCOSE,RANDOM 92 mg/dL (74-106); SGOT/AST 258 U/L (15-37); SGPT/ALT 210 U/L (12-78); TOT PROT 5.3 g/dl (6.4-8.2)
--- NOTE | 2016-04-28 09:13 | DS ---
Physical Examination Vital Signs: Vital Signs Temperature 98.1 F 04/28/16 06:00 Pulse Rate 66 04/28/16 06:00 Respiratory Rate 16 04/28/16 06:00 Blood Pressure 121/68 04/28/16 06:00 O2 Sat by Pulse Oximetry (%) 96 04/27/16 21:00 Labs: CBC, BMP 04/28/16 06:30 Discharge Summary Reason For Visit: PNEUMONIA Current Active Problems Abnormal LFTs (Acute) Anemia (Acute) HTN (hypertension) (Acute) Hypokalemia (Acute) Lactic acid acidosis (Acute) Pneumonia (Acute) Sepsis (Acute) Hospital Course: 76 yo F with hx of HTN, HLD, and "arrhythmia" was sent to ED by PCP for c/o of cough, body ache, and fever x 4 days. Patient states she has "chronic post nasal drip" and cough but she has had a "mild fever" between ranges of 98.9F to 100.1F over the past 4 days. She states that she and her are "really involved in the community" and were "running around like crazy" last week. She went to sleep "exhausted" early on Thursday and when she woke up on Thursday she started feeling generalized body aches and discomfort. 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 She was seen in office and given ceftin and azithromycin and told that if her symptoms did not improve in 24 hours tand was sent to the ER. - Past Medical History Cardiovascular: Yes: HTN, Hyperlipdemia Pulmonary: No: Asthma Gastrointestinal: No: Cancer Endocrine: Yes: Diabetes Mellitus, Hypothyroidism - Smoking History Smoking history: Current every day smoker Have you smoked in the past 12 months: Yes Aproximately how many cigarettes per day: 10 - Alcohol/Substance Use Hx Alcohol Use: No Home Medications - Allergies Allergies/Adverse Reactions: Allergies Allergy/AdvReac Type Severity Reaction Status Date / Time gatifloxacin [From Tequin] Allergy Verified 04/23/16 16:55 meperidine HCl [From Demerol] Allergy Verified 04/23/16 16:55 - Problems (1) Pneumonia Assessment/Plan: IV ABX NEBS ID CONSULT NOTED CT OF CHEST--C/W PNA Code(s): J18.9 - PNEUMONIA, UNSPECIFIED ORGANISM Qualifiers: Pneumonia type: due to unspecified organism Laterality: right Lung location: lower lobe of lung Qualified Code(s): J18.9 - Pneumonia, unspecified organism (2) HTN (hypertension) Assessment/Plan: MONITOR Code(s): I10 - ESSENTIAL (PRIMARY) HYPERTENSION (3) Hypokalemia Assessment/Plan: RPT BMP--K 4.4 Code(s): E87.6 - HYPOKALEMIA (4) Lactic acid acidosis Assessment/Plan: IVF ABX Laboratory Tests 04/24/16 08:20 Lactic Acid 1.032 Code(s): E87.2 - ACIDOSIS (5) Sepsis Assessment/Plan: IMPROVING ABX MONITOR Code(s): A41.9 - SEPSIS, UNSPECIFIED ORGANISM (6) Abnormal LFTs Assessment/Plan: MAYBE DUE TO ABX MONITOR LFT US Code(s): R79.89 - OTHER SPECIFIED ABNORMAL FINDINGS OF BLOOD CHEMISTRY (7) Anemia Assessment/Plan: R/O HEMOLYSIS VS BLOOD LOSS W/U ORDERED REPEAT Code(s): D64.9 - ANEMIA, UNSPECIFIED Condition: Improved - Instructions Referrals: Nubia Devine MD [Primary Care Provider] - 1 Week Disposition: HOME - Home Medications Comprehensive Discharge Medication List: Ambulatory Orders Alpha Lipoic Acid 200 mg PO HS 06/26/15 Aspirin [ASA -] 81 mg PO DAILY 06/26/15 Atorvastatin Ca [Lipitor] 20 mg PO HS 06/26/15 Cholecalciferol (Vitamin D3) [Vitamin D3 -] 1,000 unit PO DAILY 06/26/15 Cinnamon Bark [Cinnamon] 500 mg PO BID 06/26/15 Levothyroxine [Synthroid -] 75 mcg PO DAILY 06/26/15 Levothyroxine [Synthroid -] 88 mcg PO DAILY 06/26/15 Melatonin 3 mg PO HS 06/26/15 Metoprolol Succinate [Toprol XL -] 100 mg PO BID 06/26/15 Multivit-Min/FA/Lycopen/Lutein [Centrum Silver Tablet] 1 each PO DAILY 06/26/15 Lactobacillus Acidophilus [Bacid -] 1 tab PO DAILY tab 04/28/16 Levofloxacin [Levaquin -] 500 mg PO DAILY #7 tablet 04/28/16
[2016-04-28] MEDS ORDERED: PT OWN MED DRAWER 7, Y5N ONE (10:01)
[2016-04-28] MEDS: METOPROLOL SUCCINATE 100 MG TAB.SR.24H (FP) PO SCH ×2 (10:03→21:20)
[2016-04-28] MEDS: ASPIRIN 81 MG CHEWABLE TABLETS PO SCH (10:03)
[2016-04-28] MEDS: LEVOFLOXACIN 500 MG IVPB 100 ML IVPB SCH (10:03)
[2016-04-28] MEDS: LACTOBACILLUS ACIDOPHILUS 1 EACH TAB (FP) PO SCH (10:03)
[2016-04-28] MEDS: HEPARIN NA (PORCINE) 5,000 UNITS/ML 1ML VIAL SQ SCH ×2 (10:03→21:20)
[2016-04-28 10:40] LABS: LDH 259 U/L (84-246)
[2016-04-28 10:41] LABS: TROPONIN I < 0.02 ng/ml (0.00-0.05)
--- NOTE | 2016-04-28 10:59 | PN ---
Progress Note, Physician History of Present Illness: No complaints No c/o chest pain/ dyspnea/ cough Afebrile No abdominal pain/ nausea/vomiting - Current Medication List Current Medications: Active Medications Acetaminophen (Tylenol -) 650 mg PO Q4H PRN PRN Reason: FEVER OR PAIN Last Admin: 04/27/16 05:51 Dose: 650 mg Albuterol Sulfate (Ventolin 0.083% Nebulizer Soln -) 1 amp NEB QIDR [facility] Last Admin: 04/28/16 07:07 Dose: Not Given Aspirin (Asa -) 81 mg PO DAILY [facility] Last Admin: 04/28/16 10:03 Dose: 81 mg Atorvastatin Calcium (Lipitor -) 20 mg PO HS [facility] Last Admin: 04/27/16 21:26 Dose: 20 mg Benzocaine/Menthol (Cepacol Lozenge -) 1 each MM PRN PRN PRN Reason: SORE THROAT Heparin Sodium (Porcine) (Heparin -) 5,000 unit SQ BID [facility] Last Admin: 04/28/16 10:03 Dose: 5,000 unit Levofloxacin (Levaquin 500 Mg Premixed Ivpb -) 100 mls @ 100 mls/hr IVPB DAILY [facility] Last Admin: 04/28/16 10:03 Dose: 100 mls/hr Lactobacillus Acidophilus (Bacid -) 1 tab PO DAILY [facility] Last Admin: 04/28/16 10:03 Dose: 1 tab Levothyroxine Sodium (Synthroid -) 75 mcg PO DAILY@0700 [facility] Last Admin: 04/28/16 06:28 Dose: 75 mcg Metoprolol Succinate (Toprol Xl -) 100 mg PO BID [facility] Last Admin: 04/28/16 10:03 Dose: 100 mg - Objective Vital Signs: Vital Signs Temperature 98.8 F 04/28/16 09:57 Pulse Rate 62 04/28/16 09:57 Respiratory Rate 20 04/28/16 09:57 Blood Pressure 142/72 04/28/16 09:57 O2 Sat by Pulse Oximetry (%) 96 04/27/16 21:00 Constitutional: Yes: No Distress Eyes: Yes: Conjunctiva Clear Cardiovascular: Yes: Regular Rate and Rhythm, S1, S2 Respiratory: Yes: Other (Few crepitations, R lower lung field) Gastrointestinal: Yes: Normal Bowel Sounds, Soft. No: Tenderness Edema: No Labs: CBC, BMP 04/28/16 06:30 04/28/16 06:30 INR, PTT INR 1.25 (0.82-1.09) H 04/23/16 17:45 Assessment/Plan RLL community acquired v. atypical pneumonia -improved Possible sepsis secondary to pneumonia Elevated LFTs possible adverse drug reaction Continue levaquin 500mg po qd x 7d Repeat liver enzymes as outpatient
--- NOTE | 2016-04-28 14:57 | CON.GI ---
Consult Consult Specialty:: GI Referred by:: Dr. Devine Reason for Consultation:: Abnormal LFTs - History of Present Illness Chief Complaint: " I have a pneumonia" History of Present Illness: 76F admitted through [facility] 04/23/16 for eval of cough,aches, fevers. Given cefuroxime and z-Gerardo as outpatient, didn't get better, came to ER. was tried on ceftriaxone/azithromax and zosyn. Changed to levaquin 04/27/16. LFTs were mildly elevated on admission. US from yesterday revealed an 8mm CBD however the patient is s/p cholecystectomy. She denies abdominal pain or personal history of liver disease. She drinks alcohol socially. Her father had alcoholic cirrhosis. She gives a history of colon polyps, with her last colonoscopy being 10 years + with Dr. Amezcua. She denies rectal bleeding or melena. There is no family history of colon cancer. - History Source History Provided By: Patient - Past Medical History Cardio/Vascular: Yes: HTN, Hyperlipdemia, Other (arrhythmia (not a. fib)) Pulmonary: No: Asthma Gastrointestinal: Yes: Other (colon polyps). No: Cancer Endocrine: Yes: Diabetes Mellitus (diet controlled), Hypothyroidism - Past Surgical History Past Surgical History: Yes: Cholecystectomy (laparoscopic) - Alcohol/Substance Use Hx Alcohol Use: No - Smoking History Smoking history: Current every day smoker Have you smoked in the past 12 months: Yes Aproximately how many cigarettes per day: 10 - Social History Usual Living Arrangement: With Spouse ADL: Independent Occupation: Retired marketing information manager Place of : [facility] History of Recent Travel: No Home Medications - Allergies Allergies/Adverse Reactions: Allergies Allergy/AdvReac Type Severity Reaction Status Date / Time gatifloxacin [From Tequin] Allergy Verified 04/23/16 16:55 meperidine HCl [From Demerol] Allergy Verified 04/23/16 16:55 - Home Medications Home Medications: Ambulatory Orders Alpha Lipoic Acid 200 mg PO HS 06/26/15 Aspirin [ASA -] 81 mg PO DAILY 06/26/15 Atorvastatin Ca [Lipitor] 20 mg PO HS 06/26/15 Cholecalciferol (Vitamin D3) [Vitamin D3 -] 1,000 unit PO DAILY 06/26/15 Cinnamon Bark [Cinnamon] 500 mg PO BID 06/26/15 Levothyroxine [Synthroid -] 75 mcg PO DAILY 06/26/15 Levothyroxine [Synthroid -] 88 mcg PO DAILY 06/26/15 Melatonin 3 mg PO HS 06/26/15 Metoprolol Succinate [Toprol XL -] 100 mg PO BID 06/26/15 Multivit-Min/FA/Lycopen/Lutein [Centrum Silver Tablet] 1 each PO DAILY 06/26/15 Lactobacillus Acidophilus [Bacid -] 1 tab PO DAILY tab 04/28/16 Levofloxacin [Levaquin -] 500 mg PO DAILY #7 tablet 04/28/16 Family Disease History - Family Disease History Family Disease History: Other: Father ( 68: alcoholic cirrhosis complications), Mother ( 72: diabetes complications), Brother (no siblings. only child), Son (1 son: migraines), Daughter (2 daughters) Other Family History: no family history of colorectal cancer or other GI malignancy Review of Systems - Review of Systems Constitutional: reports: Malaise. denies: Unintentional Wgt. Loss Cardiovascular: denies: Chest Pain Respiratory: reports: Cough, SOB Gastrointestinal: reports: Diarrhea (since being on antibiotics). denies: Abdominal Pain, Constipation, Melena, Nausea, Rectal Bleeding, Vomiting, Vomiting Blood Physical Exam-GI Vital Signs: Vital Signs Temperature 98.8 F 04/28/16 09:57 Pulse Rate 62 04/28/16 09:57 Respiratory Rate 20 04/28/16 09:57 Blood Pressure 142/72 04/28/16 09:57 O2 Sat by Pulse Oximetry (%) 97 04/28/16 09:00 Constitutional: Yes: Calm Eyes: No: Sclera Icterus Cardiovascular: Yes: Regular Rate and Rhythm. No: Murmur Respiratory: Yes: CTA Bilaterally Gastrointestinal Inspection: Yes: Scars (healed trochar scars). No: Distention ...Auscultate: Yes: Normoactive Bowel Sounds ...Palpate: No: Hepatomegaly, Splenomegaly, Tenderness ...Percussion: No: Tympanitic ...Rectal Exam: Yes: Guaiac Negative (scant brown stool) Edema: No (legs in comp. stockings) Neurological: Yes: Alert, Oriented Labs: CBC, BMP 04/28/16 06:30 04/28/16 06:30 INR, PTT INR 1.25 (0.82-1.09) H 04/23/16 17:45 Hepatic Panel Total Bilirubin 0.6 mg/dL (0.2-1.0) D 04/28/16 06:30 AST 258 U/L (15-37) H 04/28/16 06:30 ALT 210 U/L (12-78) H D 04/28/16 06:30 Alkaline Phosphatase 158 U/L (45-117) H 04/28/16 06:30 Albumin 2.3 g/dl (3.4-5.0) L 04/28/16 06:30 Imaging - Results Ultrasound: Report Reviewed Problem List - Problems (1) Abnormal LFTs Assessment/Plan: Asymptomatic mixed heptocellular / cholestatic pattern Suspect secondary to medications: On several medications, spanning from prior to her admission and through her admission CBD mildly dilated on US at 8mm however suspect physiologic s/p cholecystectomy Advise: Stop lipitor Stop prn tylenol Check hepatitis A/B/C serologies Monitor LFTs Minimize hepatotoxic agents MRCP to evaluate CBD further Code(s): R79.89 - OTHER SPECIFIED ABNORMAL FINDINGS OF BLOOD CHEMISTRY (2) History of colon polyps Assessment/Plan: Advised follow-up in office to discuss colonoscopy when acute issues resolved Code(s): Z86.010 - PERSONAL HISTORY OF COLONIC POLYPS
[2016-04-29] MEDS: LEVOTHYROXINE NA 75 MCG TABLET (FP) PO SCH (06:05)
[2016-04-29] MEDS: ALBUTEROL SO4 0.083% IH SOL 2.5 MG/3 ML VIAL.NEB. NEB SCH ×3 (06:30→11:20)
[2016-04-29 08:02] LABS: BASOPHIL 1.1 % (0-2.0); MCH 31.9 pg (25.7-33.7); MCHC 34.2 g/dl (32.0-36.0); MEAN CELL VOLUME 93.5 fl (80-96); MEAN PLT VOLUME 7.9 fl (7.5-11.1); NEUTROPHILS 67.2 % (42.8-82.8); PLATELET COUNT 337 K/MM3 (134-434); WHITE BLOOD COUNT 6.8 K/mm3 (4.0-10.0)
[2016-04-29 09:06] LABS: ALBUMIN 2.2 g/dl (3.4-5.0)
[2016-04-29 09:09] LABS: ALK PHOS 142 U/L (45-117); BILIRUBIN,DIRECT 0.2 mg/dL (0.0-0.2); BILIRUBIN,TOTAL 0.5 mg/dL (0.2-1.0); SGOT/AST 135 U/L (15-37); SGPT/ALT 156 U/L (12-78); TOT PROT 5.3 g/dl (6.4-8.2)
[2016-04-29] MEDS: LACTOBACILLUS ACIDOPHILUS 1 EACH TAB (FP) PO SCH (10:18)
[2016-04-29] MEDS: HEPARIN NA (PORCINE) 5,000 UNITS/ML 1ML VIAL SQ SCH (10:19)
[2016-04-29] MEDS: METOPROLOL SUCCINATE 100 MG TAB.SR.24H (FP) PO SCH (10:19)
[2016-04-29] MEDS: ASPIRIN 81 MG CHEWABLE TABLETS PO SCH (10:19)
[2016-04-29 10:23] LABS: ANION GAP 8 (8-16); CALCIUM 8.1 mg/dL (8.5-10.1); CO2 27 mmol/L (21-32); CREATININE 0.7 mg/dL (0.55-1.02); GLUCOSE,RANDOM 96 mg/dL (74-106)
[2016-04-29] MEDS ORDERED: LEVOFLOXACIN 500 MG TABLET (FP) PO SCH (11:00)
[2016-04-29 14:49] VITALS: BP 157/85; PULSE 76; TEMP 98.4
[2016-05-01 00:08] LABS: HEP B SURFACE AB Non Reactive (.)
== END 2016-04-29 13:04 | disposition home or self-care (01) | DRG 871 ==
LOC: JER 16:51 → JERBED 22:17 → UNDOADMIN 23:10 → JERBED 23:10 → J8W 04-24 03:27
PROVIDERS: ADMIT Family Medicine; ATTEND Family Medicine
DX: A41.9 Sepsis, unspecified organism (principal); J18.9 Pneumonia, unspecified organism; E87.2 Acidosis; E11.9 Type 2 diabetes mellitus without complications; I10 Essential (primary) hypertension; E78.5 Hyperlipidemia, unspecified; I49.9 Cardiac arrhythmia, unspecified; E03.9 Hypothyroidism, unspecified; F17.210 Nicotine dependence, cigarettes, uncomplicated; E87.6 Hypokalemia; D64.9 Anemia, unspecified
CPT/HCPCS: 36415; 71020-TC; 71260-TC; 76705-TC; 80048; 80053; 80076; 81003; 81015; 82550; 82728; 82803; 83010; 83540; 83550; 83605; 83615; 83625; 83735; 84484; 85025; 85044; 85610; 85730; 86704; 86706; 86708; 86850; 86900; 86901; 87040; 87070; 87086; 87205; 87254; 87340; 87804; 87899; 93005; 93010; 94640; 99283-25; J1644

== ENCOUNTER 2016-08-08 19:19 | Emergency (ER) | payer OTHER, BC ==
[2016-08-08 20:08] VITALS: BP 134/82; PULSE 89; TEMP 97.9; BMI 27.3
--- NOTE | 2016-08-09 00:14 | PDOC ---
History of Present Illness - General History Source: Patient Exam Limitations: No Limitations - History of Present Illness Initial Comments: 08/09/16 00:15 The patient is a 75 year old female with a significant past medical history of HTN, HLD, diabetes (diet-controlled) and arrhythmia who presents to the ED s/ p fall earlier today. The patient reports she walking to her friends car that was parked on an uneven sidewalk. She reports her left ankle twisted and she fell onto her right knee, right arm and right sided ribs. Patient was able to ambulate after fall. Patient now presents with left ankle swelling and pain, right knee pain, and right sided rib pain. Denies loss of consciousness. Denies headache. Denies focal numbness, weakness, or tingling. Denies nausea, vomiting, or diarrhea. Denies any other symptoms. <Lary Santos - Last Filed: 08/09/16 00:14> <Nina Nj - Last Filed: 08/09/16 22:41> - General Chief Complaint: Pain Stated Complaint: FALL, PAIN Time Seen by Provider: 08/08/16 20:20 Past History <Lary Santos - Last Filed: 08/09/16 00:14> - Past Medical History Cardiac Disorders: Yes (irregular) Diabetes: Yes (diet controlled) HTN: Yes Hypercholesterolemia: Yes Thyroid Disease: Yes - Surgical History Cholecystectomy: Yes - Psycho/Social/Smoking Cessation Hx Anxiety: No Suicidal Ideation: No Smoking History: Current every day smoker Have you smoked in the past 12 months: Yes Number of Cigarettes Smoked Daily: 8 Information on smoking cessation initiated: No 'Breaking Loose' booklet given: 04/23/16 Hx Alcohol Use: No Drug/Substance Use Hx: No Substance Use Type: None <Nina Nj - Last Filed: 08/09/16 22:41> - Past Medical History Allergies/Adverse Reactions: Allergies Allergy/AdvReac Type Severity Reaction Status Date / Time gatifloxacin [From Tequin] Allergy Verified 04/23/16 16:55 meperidine HCl [From Demerol] Allergy Verified 04/23/16 16:55 Home Medications: Ambulatory Orders Alpha Lipoic Acid 200 mg PO HS 06/26/15 Atorvastatin Ca [Lipitor] 20 mg PO HS 06/26/15 Cholecalciferol (Vitamin D3) [Vitamin D3 -] 1,000 unit PO DAILY 06/26/15 Cinnamon Bark [Cinnamon] 500 mg PO BID 06/26/15 Levothyroxine [Synthroid -] 75 mcg PO WEEKLY 06/26/15 Levothyroxine [Synthroid -] 80 mcg PO DAILY 06/26/15 Melatonin 3 mg PO HS 06/26/15 Metoprolol Succinate [Toprol XL -] 100 mg PO BID 06/26/15 Multivit-Min/FA/Lycopen/Lutein [Centrum Silver Tablet] 1 each PO DAILY 06/26/15 Lactobacillus Acidophilus [Bacid -] 1 tab PO DAILY tab 04/28/16 Aspirin [ASA -] 81 mg PO DAILY 08/09/16 Ibandronate Sodium [Boniva] 3 mg IV MO 08/09/16 Review of Systems - Review of Systems Able to Perform ROS?: Yes Comments:: 08/09/16 00:15 CONSTITUTIONAL: Absent: fever, chills, diaphoresis, generalized weakness, malaise, loss of appetite HEENT: Absent: rhinorrhea, nasal congestion, throat pain, throat swelling, difficulty swallowing, mouth swelling, ear pain, eye pain, visual Changes CARDIOVASCULAR: Absent: chest pain, syncope, palpitations, irregular heart rate, lightheadedness , peripheral edema RESPIRATORY: Absent: cough, shortness of breath, dyspnea with exertion, orthopnea, wheezing, stridor, hemoptysis GASTROINTESTINAL: Absent: abdominal pain, abdominal distension, nausea, vomiting, diarrhea, constipation, melena, hematochezia GENITOURINARY: Absent: dysuria, frequency, urgency, hesitancy, hematuria, flank pain, genital pain MUSCULOSKELETAL: + left ankle swelling, left ankle pain, right knee pain, right rib pain SKIN: Absent: rash, itching, pallor HEMATOLOGIC/IMMUNOLOGIC: Absent: easy bleeding, easy bruising, lymphadenopathy, frequent infections ENDOCRINE: Absent: unexplained weight gain, unexplained weight loss, heat intolerance, cold intolerance NEUROLOGIC: Absent: headache, focal weakness or paresthesias, dizziness, unsteady gait, seizure, mental status changes, bladder or bowel incontinence PSYCHIATRIC: Absent: anxiety, depression, suicidal or homicidal ideation, hallucinations. All Other Systems: Reviewed and Negative <Lary Santos - Last Filed: 08/09/16 00:14> *Physical Exam - Vital Signs Last Vital Signs Temp Pulse Resp BP Pulse Ox 97.9 F 89 18 134/82 100 08/08/16 20:05 08/08/16 20:05 08/08/16 20:05 08/08/16 20:05 08/08/16 20:05 - Physical Exam Comments: 08/09/16 00:15 GENERAL: Well developed, well nourished. Awake and alert. No acute distress. HEENT: Normocephalic, atraumatic. PERRLA, EOMI. No conjunctival pallor. Sclera are non- icteric. Moist mucous membranes. Oropharynx is clear. NECK: Supple. Full ROM. No JVD. Carotid pulses 2+ and symmetric, without bruits. No thyromegaly. NCo lymphadenopathy. CARDIOVASCULAR: Regular rate and rhythm. No murmurs, rubs, or gallops. Distal pulses are 2+ and symmetric. PULMONARY: No evidence of respiratory distress. Lungs clear to auscultation bilaterally. No wheezing, rales or rhonchi. ABDOMINAL: Soft. Non-tender. Non-distended. No rebound or guarding. No organomegaly. Normoactive bowel sounds. MUSCULOSKELETAL + right anterior floating rib tenderness. Normal range of motion at all joints. No bony deformities. No CVA tenderness. EXTREMITIES: No cyanosis. No clubbing. No edema. No calf tenderness. SKIN: + there is an oval shaped hematoma, 1.5 cm x 3 cm, in the left lateral foot at the area of the proximal metatarsal. Warm and dry. Normal capillary refill. No rashes. No jaundice. NEUROLOGICAL: Alert, awake, appropriate. Cranial nerves 2-12 intact. No deficits to light touch and temperature in face, upper extremities and lower extremities. No motor deficits in the in face, upper extremities and lower extremities. Normoreflexic in the upper and lower extremities. Normal speech. Toes are down- going bilaterally. Gait is normal without ataxia. PSYCHIATRIC: Cooperative. Good eye contact. Appropriate mood and affect. <Lary Santos - Last Filed: 08/09/16 00:14> - Vital Signs Last Vital Signs Temp Pulse Resp BP Pulse Ox 97.9 F 89 18 134/82 100 08/08/16 20:05 08/08/16 20:05 08/08/16 20:05 08/08/16 20:05 08/08/16 20:05 <Nina Nj - Last Filed: 08/09/16 22:41> ED Treatment Course - RADIOLOGY Radiology Studies Ordered: Category Date Time Status ANKLE & FOOT-LEFT* [RAD] Stat Radiology 08/09/16 00:08 Ordered RIBS RIGHT SIDE [RAD] Stat Radiology 08/09/16 00:11 Ordered ABDOMEN US [US] Stat Ultrasound 08/09/16 00:12 Ordered <Nina Nj - Last Filed: 08/09/16 22:41> Medical Decision Making - Medical Decision Making 08/09/16 22:36 Pt was leaving a get together with friends and she was walking toher car and tripped on uneven grass pavment by her car. She inverted her left foot, now with swelling and brising at the base of the 5th metatarsal and the dosal- lateral aspect of her right foot. She has no left malleolar tenderness and she was able to ambulate at the scene. When she fell, she abraded her right knee and injured her right anterior ribs. Patient was initially seen in fast track, but no note was written and patient was upgraded to the ER, for RUQ evaluation. Pt's RUQ was evaluated with sonogram of her abd. No free fluid and no liver lac. SHe has no abdominal pain or guarding or rebound. All her pain is at the anterior ribs. Pt was made aware that anterior lower ribs are cartilaginous. SHe has no side rib pain. She has no hematoma o the chest wall or abdomen. CXR and ribs series on the right appear normal to me. Pt's ankle/foot xr on the left demonstrate 5th metatarsal base fracture. Pt placed in a posterior splint and a hard shoe. SHe will follow with ortho and her PMD. Crutches given to patient for stability and comfort. SHe is WBAT. RICE measures explained. Pt is stable for discharge. <Nina Nj - Last Filed: 08/09/16 22:41> *DC/Admit/Observation/Transfer - Attestations Scribe Attestion: 08/09/16 00:15 Documentation prepared by Lary Santos, acting as medical hospital sales for Nina Nj MD <Lary Santos - Last Filed: 08/09/16 00:14> - Discharge Dispostion Admit: No <Nina Nj - Last Filed: 08/09/16 22:41> Diagnosis at time of Disposition: Fracture of base of fifth metatarsal bone - Discharge Dispostion Disposition: HOME Condition at time of disposition: Stable - Referrals Referrals: Nubia Devine MD [Primary Care Provider] - - Patient Instructions Printed Discharge Instructions: DI for Foot Fracture
[2016-08-09] MEDS ORDERED: IBUPROFEN 600 MG TABLET (FP) PO ONE ×2 (00:25→00:29)
[2016-08-09] MEDS ORDERED: ACETAMINOPHEN WITH CODEINE 300MG/30MG TABLET PO ONE (00:25)
[2016-08-09] MEDS ORDERED: ACETAMINOPHEN WITH CODEINE 300MG/30MG TABLET ONE (00:29)
== END 2016-08-09 02:12 | disposition home or self-care (01) ==
LOC: JERFT 19:19 → SUPCPDRO 19:19 → JER 19:19
PROC: 2W3SX1Z Immobilization of Right Foot using Splint (ICD-10-PCS; principal; 2016-08-08)
DX: S92.351A Displaced fracture of fifth metatarsal bone, right foot, initial encounter for closed fracture (principal); W18.39XA Other fall on same level, initial encounter; Y93.89 Activity, other specified; Y92.481 Parking lot as the place of occurrence of the external cause; F17.210 Nicotine dependence, cigarettes, uncomplicated
CPT/HCPCS: 71101-TC-RT; 73610-TC-LT; 73630-TC-LT; 76705-TC; 99282-25

== ENCOUNTER 2019-02-24 09:33 | Emergency (ER) | payer OTHER, BC ==
[2019-02-24 09:46] VITALS: BP 164/82; PULSE 65; TEMP 98; BMI 26.6
[2019-02-24] MEDS ORDERED: ACETAMINOPHEN 500 MG TABLET (FP) PO ONE (10:19)
--- NOTE | 2019-02-24 10:24 | PDOC ---
History of Present Illness - General Chief Complaint: Muscle Cramping Stated Complaint: PULLED MUSCLE Time Seen by Provider: 02/24/19 09:58 History Source: Patient - History of Present Illness Initial Comments: 02/24/19 10:20 78-year-old female complaining of right flank pain worse with movement. Patient reports for the last 5 days patient has been moving furniture's and getting for ready for the holidays. Patient reports he is doing more work than normal. "I believe I pulled a muscle." Past medical history of hypertension, hypercholesteremia, diabetes, Abnormal heart rhythm; Cholecystectomy 02/24/19 10:21 Denies nausea, vomiting, diarrhea, shortness of breath, chest pain, pleuritic pain Past History - Past Medical History Allergies/Adverse Reactions: Allergies Allergy/AdvReac Type Severity Reaction Status Date / Time gatifloxacin [From Tequin] Allergy Verified 02/24/19 09:42 meperidine HCl [From Demerol] Allergy Verified 02/24/19 09:42 Home Medications: Ambulatory Orders Alpha Lipoic Acid 200 mg PO HS 06/26/15 Atorvastatin Ca [Lipitor] 20 mg PO HS 06/26/15 Cholecalciferol (Vitamin D3) [Vitamin D3 -] 1,000 unit PO DAILY 06/26/15 Cinnamon Bark [Cinnamon] 500 mg PO BID 06/26/15 Levothyroxine [Synthroid -] 75 mcg PO WEEKLY 06/26/15 Levothyroxine [Synthroid -] 80 mcg PO DAILY 06/26/15 Melatonin 3 mg PO HS 06/26/15 Metoprolol Succinate [Toprol XL -] 100 mg PO BID 06/26/15 Multivit-Min/FA/Lycopen/Lutein [Centrum Silver Tablet] 1 each PO DAILY 06/26/15 Lactobacillus Acidophilus [Bacid -] 1 tab PO DAILY tab 04/28/16 Aspirin [ASA -] 81 mg PO DAILY 08/09/16 Ibandronate Sodium [Boniva] 3 mg IV MO 08/09/16 Cyclobenzaprine HCl [Flexeril -] 10 mg PO HS PRN #7 tablet 02/24/19 Cardiac Disorders: Yes (irregular) COPD: No Diabetes: Yes (diet controlled) HTN: Yes Hypercholesterolemia: Yes Thyroid Disease: Yes - Surgical History Cholecystectomy: Yes - Immunization History Immunization Up to Date: Yes - Psycho Social/Smoking Cessation Hx Smoking History: Never smoked Have you smoked in the past 12 months: Yes Number of Cigarettes Smoked Daily: 8 'Breaking Loose' booklet given: 04/23/16 Hx Alcohol Use: No Drug/Substance Use Hx: No Substance Use Type: None Review of Systems - Review of Systems Able to Perform ROS?: Yes Is the patient limited Belarusian proficient: No Constitutional: No: Symptoms Reported, See HPI, Chills, Diaphoresis, Fever, Loss of Appetite, Malaise, Night Sweats, Weakness, Weight Stable, Unintentional Wgt. Loss, Unexplained wgt Loss, Other Respiratory: No: Symptoms reported, See HPI, Cough, Orthopnea, Shortness of Breath, SOB with Exertion, SOB at Rest, Stridor, Wheezing, Productive cough, Hemoptysis, Other *Physical Exam - Vital Signs Last Vital Signs Temp Pulse Resp BP Pulse Ox 98 F 65 17 164/82 100 02/24/19 09:43 02/24/19 09:43 02/24/19 09:43 02/24/19 09:43 02/24/19 09:43 - Physical Exam General Appearance: Yes: Appropriately Dressed Respiratory/Chest: positive: Lungs Clear, Normal Breath Sounds Cardiovascular: positive: Regular Rate Gastrointestinal/Abdominal: positive: Normal Bowel Sounds, Soft. negative: Tender Musculoskeletal: positive: Normal Inspection. negative: CVA Tenderness Extremity: positive: Normal Capillary Refill, Normal Inspection, Normal Range of Motion, Other (pain worse with movement. ) Integumentary: positive: Normal Color, Dry, Warm Neurologic: positive: Fully Oriented, Alert Medical Decision Making - Medical Decision Making Musculoskeletal pain P: ibuprofen ua Discharge - Discharge Information Problems reviewed: Yes Clinical Impression/Diagnosis: Musculoskeletal back pain Condition: Good Disposition: HOME - Additional Discharge Information Prescriptions: Cyclobenzaprine HCl [Flexeril -] 10 mg PO HS PRN #7 tablet PRN Reason: Muscle Spasms - Follow up/Referral Referrals: Nubia Devine MD [Primary Care Provider] - - Patient Discharge Instructions Patient Printed Discharge Instructions: Muscle Strain Additional Instructions: Do light stretches Apply ice to the area for the first 24 hours. Then alternate with ice and heat after. Take ibuprofen every 6 hours as needed for pain. Take Flexeril as prescribed for muscle spasm. Flexeril can make you sleepy, do not drive or operate heavy machinery after taking the medication. Follow-up with your doctor as soon as possible. Return to the emergency room for any worsening symptoms. - Post Discharge Activity Work/Back to School Note: Back to Work
[2019-02-24] MEDS ORDERED: ACETAMINOPHEN 325 MG TABLET (FP) ONE (10:25)
[2019-02-24 10:51] LABS: PH,URINE 6.5 (5.0-8.0); URINE APPEARANCE CLEAR; URINE BILIRUBIN NEGATIVE (NEGATIVE); URINE COLOR DK YELLOW; URINE GLUCOSE (UA) NEGATIVE (NEGATIVE); URINE KETONE NEGATIVE (NEGATIVE); URINE LEUK ESTERASE NEGATIVE (NEGATIVE); URINE NITRITE NEGATIVE (NEGATIVE); URINE PROTEIN NEGATIVE (NEGATIVE); URINE UROBILINOGEN 0.2 mg/dL (0.2-1.0)
== END 2019-02-24 11:10 | disposition home or self-care (01) ==
LOC: JERFT 09:33
DX: M54.89 Other dorsalgia (principal); X50.0XXA Overexertion from strenuous movement or load, initial encounter; Y93.89 Activity, other specified; Y92.038 Other place in apartment as the place of occurrence of the external cause; Y99.8 Other external cause status; I10 Essential (primary) hypertension; E78.00 Pure hypercholesterolemia, unspecified; E11.9 Type 2 diabetes mellitus without complications; E03.9 Hypothyroidism, unspecified; Z90.49 Acquired absence of other specified parts of digestive tract; Z88.8 Allergy status to other drugs, medicaments and biological substances; Z86.79 Personal history of other diseases of the circulatory system
CPT/HCPCS: 81003; 99282-25

== ENCOUNTER 2019-04-14 08:19 | Emergency (ER) | payer OTHER, BC ==
[2019-04-14 08:27] VITALS: TEMP 98; BMI 26.6
--- NOTE | 2019-04-14 08:32 | PDOC ---
History of Present Illness - General Chief Complaint: Pain, Acute Stated Complaint: ABDOMINAL PAIN Time Seen by Provider: 04/14/19 08:31 History Source: Patient Exam Limitations: No Limitations - History of Present Illness Initial Comments: 04/14/19 08:49 79yF w PMHx hypothyroidism, HTN HLD osteoporosis presenting w insidious onset intermittent mild midline suprapubic pain relieved w passing gas starting last night. Did not take any meds. Had cholecystectomy. Has passed BM overnight. Denies fever, nausea/vomiting, chest pain, SOB, dysuria Past History - Past Medical History Allergies/Adverse Reactions: Allergies Allergy/AdvReac Type Severity Reaction Status Date / Time gatifloxacin [From Tequin] Allergy Verified 04/14/19 08:22 meperidine HCl [From Demerol] Allergy Verified 04/14/19 08:22 Home Medications: Ambulatory Orders Alpha Lipoic Acid 200 mg PO HS 06/26/15 Atorvastatin Ca [Lipitor] 20 mg PO HS 06/26/15 Cholecalciferol (Vitamin D3) [Vitamin D3 -] 1,000 unit PO DAILY 06/26/15 Cinnamon Bark [Cinnamon] 500 mg PO BID 06/26/15 Levothyroxine [Synthroid -] 75 mcg PO WEEKLY 06/26/15 Levothyroxine [Synthroid -] 88 mcg PO DAILY 06/26/15 Melatonin 3 mg PO HS 06/26/15 Metoprolol Succinate [Toprol XL -] 100 mg PO BID 06/26/15 Multivit-Min/FA/Lycopen/Lutein [Centrum Silver Tablet] 1 each PO DAILY 06/26/15 Lactobacillus Acidophilus [Bacid -] 1 tab PO DAILY tab 04/28/16 Aspirin [ASA -] 81 mg PO DAILY 08/09/16 Ibandronate Sodium [Boniva] 3 mg IV MO 08/09/16 Cyclobenzaprine HCl [Flexeril -] 10 mg PO HS PRN #7 tablet 02/24/19 Sulfamethoxazole/Trimethoprim [Bactrim Ds -] 1 tab PO BID #14 tablet 04/14/19 metroNIDAZOLE [Flagyl -] 500 mg PO TID 7 Days #21 tablet 04/14/19 Cardiac Disorders: Yes (irregular) COPD: No Diabetes: Yes (diet controlled) HTN: Yes Hypercholesterolemia: Yes Thyroid Disease: Yes - Surgical History Cholecystectomy: Yes - Immunization History Immunization Up to Date: Yes - Psycho Social/Smoking Cessation Hx Smoking History: Smoker current status UNK Have you smoked in the past 12 months: Yes Number of Cigarettes Smoked Daily: 8 'Breaking Loose' booklet given: 04/23/16 Hx Alcohol Use: No Drug/Substance Use Hx: No Substance Use Type: None Review of Systems - Review of Systems Constitutional: No: Chills, Fever HEENTM: No: Eye Pain, Nose Congestion Respiratory: No: Cough, Shortness of Breath Cardiac (ROS): No: Chest Pain, Palpitations ABD/GI: No: Abdominal Distended, Constipated, Diarrhea, Nausea, Vomiting : No: Burning, Dysuria Musculoskeletal: No: Back Pain, Joint Pain Integumentary: No: Bruising, Flushing Neurological: No: Headache, Seizure Psychiatric: No: Anxiety, Depression Endocrine: No: Intolerance to Cold, Intolerance to Heat Hematologic/Lymphatic: No: Anemia, Blood Clots *Physical Exam - Vital Signs Last Vital Signs Temp Pulse Resp BP Pulse Ox 98 F 74 18 155/66 96 04/14/19 08:25 04/14/19 08:25 04/14/19 08:25 04/14/19 08:25 04/14/19 08:25 - Physical Exam General Appearance: Yes: Nourished, Appropriately Dressed. No: Apparent Distress HEENT: positive: EOMI, JEROME, Normal Voice, Hearing Grossly Normal. negative: Scleral Icterus (R), Scleral Icterus (L) Respiratory/Chest: positive: Lungs Clear, Normal Breath Sounds. negative: Chest Tender, Respiratory Distress Cardiovascular: positive: Regular Rhythm, Regular Rate, S1, S2. negative: Edema , Murmur Gastrointestinal/Abdominal: positive: Normal Bowel Sounds, Tender (mild midline suprapubic and RLQ), Flat, Soft. negative: Organomegaly, Distended, Guarding, Rebound, Tenderness, Hernia, Mass Musculoskeletal: negative: CVA Tenderness (R), CVA Tenderness (L) Extremity: positive: Normal Capillary Refill Integumentary: positive: Normal Color. negative: Dry Neurologic: positive: corporate manager II-XII NML intact, Fully Oriented, Alert, Normal Response, Responsive. negative: Sensory Deficit, Confused, Disoriented ED Treatment Course - LABORATORY CBC & Chemistry Diagram: 04/14/19 05:55 04/14/19 05:55 Medical Decision Making - Medical Decision Making 04/14/19 08:48 CT A/P acute diverticulitis of distal sigmoid colon w stranding/edema, minimal free fluid, no extraluminal air or abscess normal CBC CMP --- 79yF w PMHx hypothyroidism, HTN HLD osteoporosis presenting w 1d intermittent mild midline suprapubic pain showed acute diverticulitis. Low concern for UTI (clean UA) vs kidney stone (no UA blood) vs SBO (not diffuse tender or distended) vs pancreatitis (normal lipase) vs appendicitis ( none seen) Given flagyl, bactrim DC w flagyl, bactrim, and PCP f/u Discharge - Discharge Information Problems reviewed: Yes Clinical Impression/Diagnosis: Diverticulitis Condition: Good Disposition: HOME - Admission No - Additional Discharge Information Prescriptions: metroNIDAZOLE [Flagyl -] 500 mg PO TID 7 Days #21 tablet Sulfamethoxazole/Trimethoprim [Bactrim Ds -] 1 tab PO BID #14 tablet - Follow up/Referral Referrals: Nubia Devine MD [Primary Care Provider] - Carlos Lassiter DO [Staff Physician] - - Patient Discharge Instructions Patient Printed Discharge Instructions: DI for Diverticulitis Additional Instructions: Take the prescribed antibiotics as directed. Take tylenol or ibuprofen if you have pain. Drink lots of water Follow up with the referred GI doctor - Post Discharge Activity
[2019-04-14 09:09] LABS: BASO % 1.2 % (0-2.0); EOS % 0.8 % (0-4.5); HEMATOCRIT 40.5 % (32.4-45.2); HEMOGLOBIN 13.8 GM/dL (10.7-15.3); LYMPH % 16.6 % (8-40); MCH 32.5 pg (25.7-33.7); MCHC 34.2 g/dl (32.0-36.0); MEAN PLT VOLUME 8.5 fl (7.5-11.1); MONO % 16.4 % (3.8-10.2); PLATELET COUNT 166 K/MM3 (134-434); RBC 4.26 M/mm3 (3.60-5.2); RDW 13.7 % (11.6-15.6); URINE APPEARANCE CLEAR; URINE BILIRUBIN NEGATIVE (NEGATIVE); URINE COLOR YELLOW; URINE GLUCOSE (UA) NEGATIVE (NEGATIVE); URINE KETONE NEGATIVE (NEGATIVE); URINE LEUK ESTERASE NEGATIVE (NEGATIVE); URINE NITRITE NEGATIVE (NEGATIVE); URINE PROTEIN NEGATIVE (NEGATIVE); URINE UROBILINOGEN 0.2 mg/dL (0.2-1.0); WHITE BLOOD COUNT 6.6 K/mm3 (4.0-10.0)
[2019-04-14 09:36] LABS: ALBUMIN 3.4 g/dl (3.4-5.0); BLOOD UREA NITROGEN 12.6 mg/dL (7-18); CALCIUM 8.9 mg/dL (8.5-10.1); CREATININE 0.8 mg/dL (0.55-1.3); POTASSIUM 3.9 mmol/L (3.5-5.1); TOT PROT 6.9 g/dl (6.4-8.2)
--- NOTE | 2019-04-14 10:42 | PDOC ---
Attending Attestation - Resident Resident Name: Benoit,Jonatan - ED Attending Attestation I have performed the following: I have examined & evaluated the patient, The case was reviewed & discussed with the resident, I agree w/resident's findings & plan, Exceptions are as noted - HPI HPI: 04/14/19 10:41 79yoF hx of HTN, HL presnest w/ few days of LLQ abd pain, feels better w/ passing flatus but feels "different" from her typical gas pains. Pt unable to quantify. NO fevers. - Physicial Exam PE: 04/14/19 10:42 NAD mild llq ttp, no guarding, no rebound. A&O x 3 - Medical Decision Making 04/14/19 10:42 79yoF w/ abd pain and tendernss to LLQ, r/o diverticulitis. Pt is tolerating PO - labs - ctap - dispo per results.
[2019-04-14] MEDS ORDERED: metroNIDAZOLE 500 MG TABLET PO ONE (12:05)
[2019-04-14] MEDS ORDERED: SULFAMETHOXAZOLE/TRIMETHOPRIM 800MG/160MG D.S. TABLET PO ONE (12:05)
[2019-04-14] MEDS ORDERED: metroNIDAZOLE 250 MG TABLET ONE (12:16)
[2019-04-14] MEDS ORDERED: SULFAMETHOXAZOLE/TRIMETHOPRIM 800MG/160MG D.S. TABLET ONE (12:16)
[2019-04-14 12:25] VITALS: BP 134/86; PULSE 79
== END 2019-04-14 12:25 | disposition home or self-care (01) ==
LOC: JER 08:19
DX: K57.93 Diverticulitis of intestine, part unspecified, without perforation or abscess with bleeding (principal); I10 Essential (primary) hypertension; E78.5 Hyperlipidemia, unspecified; E03.9 Hypothyroidism, unspecified; E11.9 Type 2 diabetes mellitus without complications; Z90.49 Acquired absence of other specified parts of digestive tract; Z88.8 Allergy status to other drugs, medicaments and biological substances; Z88.0 Allergy status to penicillin
CPT/HCPCS: 36415; 74177-TC; 80053; 81003; 85025; 87086; 99284-25

== ENCOUNTER 2019-04-29 13:41 | Emergency (ER) | payer OTHER, BC ==
[2019-04-29] MEDS ORDERED: DIPHTH,PERTUSS(ACELL),TET 0.5 ML DISP.SYRIN IM ONE ×2 (14:25→15:41)
[2019-04-29] MEDS ORDERED: ACETAMINOPHEN 325 MG TABLET (FP) PO ONE (14:25)
[2019-04-29 14:27] VITALS: BP 149/77; PULSE 80; TEMP 97.4; BMI 26.6
--- NOTE | 2019-04-29 15:00 | PDOC ---
History of Present Illness - General History Source: Patient Exam Limitations: No Limitations <Genia Goldberg - Last Filed: 04/29/19 15:49> <Agueda Ortiz - Last Filed: 04/30/19 10:21> - General Chief Complaint: Injury Stated Complaint: FALL Time Seen by Provider: 04/29/19 14:13 Past History - Travel Traveled outside of the country in the last 30 days: No Close contact w/someone who was outside of country & ill: No - Past Medical History Cardiac Disorders: Yes (irregular) COPD: No Diabetes: Yes (diet controlled) HTN: Yes Hypercholesterolemia: Yes Thyroid Disease: Yes - Surgical History Cholecystectomy: Yes - Immunization History Immunization Up to Date: Yes - Psycho Social/Smoking Cessation Hx Smoking History: Never smoked Have you smoked in the past 12 months: No Number of Cigarettes Smoked Daily: 8 Information on smoking cessation initiated: No 'Breaking Loose' booklet given: 04/23/16 Hx Alcohol Use: No Drug/Substance Use Hx: No Substance Use Type: None <Genia Goldberg - Last Filed: 04/29/19 15:49> <Agueda Ortiz - Last Filed: 04/30/19 10:21> - Past Medical History Allergies/Adverse Reactions: Allergies Allergy/AdvReac Type Severity Reaction Status Date / Time gatifloxacin [From Tequin] Allergy Verified 04/29/19 14:09 meperidine HCl [From Demerol] Allergy Verified 04/29/19 14:09 Home Medications: Ambulatory Orders Alpha Lipoic Acid 200 mg PO HS 06/26/15 Atorvastatin Ca [Lipitor] 20 mg PO HS 06/26/15 Cholecalciferol (Vitamin D3) [Vitamin D3 -] 1,000 unit PO DAILY 06/26/15 Cinnamon Bark [Cinnamon] 500 mg PO BID 06/26/15 Levothyroxine [Synthroid -] 75 mcg PO WEEKLY 06/26/15 Levothyroxine [Synthroid -] 88 mcg PO DAILY 06/26/15 Melatonin 3 mg PO HS 06/26/15 Metoprolol Succinate [Toprol XL -] 100 mg PO BID 06/26/15 Multivit-Min/FA/Lycopen/Lutein [Centrum Silver Tablet] 1 each PO DAILY 06/26/15 Lactobacillus Acidophilus [Bacid -] 1 tab PO DAILY tab 04/28/16 Aspirin [ASA -] 81 mg PO DAILY 08/09/16 Ibandronate Sodium [Boniva] 3 mg IV MO 08/09/16 Cyclobenzaprine HCl [Flexeril -] 10 mg PO HS PRN #7 tablet 02/24/19 Sulfamethoxazole/Trimethoprim [Bactrim Ds -] 1 tab PO BID #14 tablet 04/14/19 metroNIDAZOLE [Flagyl -] 500 mg PO TID 7 Days #21 tablet 04/14/19 Review of Systems - Review of Systems Able to Perform ROS?: Yes Comments:: 04/29/19 15:26 CONSTITUTIONAL: Absent: fever, chills, diaphoresis, generalized weakness, malaise, loss of appetite HEENT: Absent: rhinorrhea, nasal congestion, throat pain, throat swelling, difficulty swallowing, mouth swelling, ear pain, eye pain, visual Changes CARDIOVASCULAR: Absent: chest pain, loss of consciousness, palpitations, irregular heart rate, peripheral edema RESPIRATORY: Absent: cough, shortness of breath, dyspnea with exertion, orthopnea, wheezing, stridor, hemoptysis GASTROINTESTINAL: Absent: abdominal pain, abdominal distension, nausea, vomiting, diarrhea, constipation, melena, hematochezia GENITOURINARY: Absent: dysuria, frequency, urgency, hesitancy, hematuria, flank pain, genital pain MUSCULOSKELETAL: Present: Bilateral wrist pain, right knee pain, facial swelling absent: myalgia , arthralgia, joint swelling SKIN: Absent: rash, itching, pallor HEMATOLOGIC/IMMUNOLOGIC: Absent: easy bleeding, easy bruising, lymphadenopathy, frequent infections ENDOCRINE: Absent: unexplained weight gain, unexplained weight loss, heat intolerance, cold intolerance NEUROLOGIC: Absent: headache, focal weakness or paresthesias, dizziness, unsteady gait, seizure, mental status changes, bladder or bowel incontinence PSYCHIATRIC: Absent: anxiety, depression, suicidal or homicidal ideation, hallucinations. Is the patient limited Hungarian proficient: No <Genia Goldberg - Last Filed: 04/29/19 15:49> *Physical Exam - Vital Signs Last Vital Signs Temp Pulse Resp BP Pulse Ox 97.4 F L 80 16 149/77 97 04/29/19 13:41 04/29/19 13:41 04/29/19 13:41 04/29/19 13:41 02/28/20 13:41 - Physical Exam 04/29/19 15:29 GENERAL: Well developed, well nourished. Awake and alert. No acute distress. HEENT: Normocephalic, large hematoma noted over the right zygomatic arch with tenderness to palpation. Negative cisneros sign no hemotympanum. PERRLA, EOMI. No conjunctival pallor. Sclera are non-icteric. Moist mucous membranes. Oropharynx is clear. NECK: Supple. Full ROM. No lymphadenopathy. CARDIOVASCULAR: Regular rate and rhythm. No murmurs, rubs, or gallops. Distal pulses are 2+ and symmetric. PULMONARY: No evidence of respiratory distress. Lungs clear to auscultation bilaterally. No wheezing, rales or rhonchi. MUSCULOSKELETAL Tenderness palpation of the left third metacarpal with bruising associated. Tenderness palpation of the anterior right knee with mild associated swelling. Normal range of motion at all joints. No bony deformities or tenderness. EXTREMITIES: No cyanosis. No clubbing. No edema. No calf tenderness. SKIN: Abrasions to the left wrist, right knee. Warm and dry. Normal capillary refill. No rashes. No jaundice. NEUROLOGICAL: Alert, awake, appropriate. Cranial nerves 2-12 intact. No deficits to light touch and temperature in face, upper extremities and lower extremities. No motor deficits in the in face, upper extremities and lower extremities. Normoreflexic in the upper and lower extremities. Normal speech. Toes are down- going bilaterally. Gait is normal without ataxia. PSYCHIATRIC: Cooperative. Good eye contact. Appropriate mood and affect. <Genia Goldberg - Last Filed: 04/29/19 15:49> - Vital Signs Last Vital Signs Temp Pulse Resp BP Pulse Ox 97.4 F L 80 16 149/77 97 04/29/19 13:41 04/29/19 13:41 04/29/19 13:41 04/29/19 13:41 04/29/19 13:41 <Agueda Ortiz - Last Filed: 04/30/19 10:21> ED Treatment Course - RADIOLOGY Radiology Studies Ordered: Category Date Time Status FACIAL BONES CT W/O CONTRAST [CT] Stat CT Scan 04/29/19 14:[address] WITHOUT CONTRAST [CT] Stat CT Scan 04/29/19 14:23 Taken KNEE 3 POS-RIGHT [RAD] Stat Radiology 04/29/19 14:25 Ordered WRIST W/HAND-LEFT* [RAD] Stat Radiology 04/29/19 14:25 Ordered WRIST W/HAND-RIGHT* [RAD] Stat Radiology 04/29/19 14:25 Ordered <Genia Goldberg - Last Filed: 04/29/19 15:49> - Medications Given in the ED: ED Medications Discontinued Medications Generic Name Dose Route Start Last Admin Trade Name Loraine PRN Reason Stop Dose Admin Acetaminophen 1,000 mg 04/29/19 14:25 04/29/19 15:44 Tylenol - PO 04/29/19 14:26 1,000 mg ONCE ONE Administration Diphtheria/Tetanus/Acell Pertussis 0.5 ml 04/29/19 14:25 04/29/19 15:45 Boostrix - IM 04/29/19 14:26 0.5 ml .ONCE ONE Administration <DianaAgueda Harry - Last Filed: 04/30/19 10:21> Medical Decision Making - Medical Decision Making 04/29/19 15:35 The patient is an 79-year-old female past medical history of irregular heartbeat , hypertension, hyperlipidemia, presents the ER today after trip and fall. She states that she was coming out of chairs when she missed stepped on the curb and face planted. She states that she used both wrists to brace herself. She notes that she has abrasions to her left wrist and right knee. She has a large hematoma under her right eye. She denies getting dizzy or losing consciousness. She does not take blood thinners. Denies numbness, weakness and tingling to the affected extremities. A/P: Injuries from a fall On exam patient with a large hematoma on the right zygomatic arch. EOMI intact , no visual field loss. CT of head and face ordered X-rays of the wrists and knees also taken given injuries. Tetanus updated today as patient does not know her last vaccination. Tylenol and ice given Reevaluate 04/29/19 15:50 CT of the head and facial bones without acute pathology. Orbits intact. Old nasal fracture. Wet read of x-rays show no fractures. EKG rate 63 bpm, normal sinus rhythm. Normal intervals and axis. No acute ST- T wave changes. Overall normal EKG. We will discharge home likely a mechanical trip and fall. Recommend follow-up with her primary care doctor. I discussed the physical exam findings, ancillary test results and final diagnoses with the patient. I answered all of the patient's questions. The patient was satisfied with the care received and felt comfortable with the discharge plan and treatment plan. The Patient agrees to follow up with the primary care physician/specialist within 24-72 hours. Return precautions were given. <Genia Goldberg - Last Filed: 04/29/19 15:49> - Medical Decision Making The patient was seen and evaluated in conjunction with midlevel provider under my direct supervision, ancillary studies were reviewed. I agree with the plan as outlined with LETICIA Goldberg. HPI, workup/dispo as outlined. VS reviewed, wnl. Vital Signs Temp Pulse Resp BP Pulse Ox 97.4 F L 80 16 149/77 97 04/29/19 13:41 04/29/19 13:41 04/29/19 13:41 04/29/19 13:41 04/29/19 13:41 ECG unremarkable, NSR CT imaging neg for fx/acute injuries, orbits wnl. old nasal fx, which pt does not endorse pain in that area analgesia, supportive care, fall safety prevention wound care instructions tdap given anticipate discharge, pcp followup, return precautions 04/30/19 10:20 <Agueda Ortiz - Last Filed: 04/30/19 10:21> Discharge - Discharge Information Problems reviewed: Yes - Admission No <Genia Goldberg - Last Filed: 04/29/19 15:49> <Agueda Ortiz - Last Filed: 04/30/19 10:21> - Discharge Information Clinical Impression/Diagnosis: Hematoma, Abrasion Fall Qualifiers: Encounter type: initial encounter Qualified Code(s): W19.XXXA - Unspecified fall, initial encounter Condition: Stable Disposition: HOME - Follow up/Referral Referrals: Nubia Devine MD [Primary Care Provider] - - Patient Discharge Instructions Patient Printed Discharge Instructions: DI for Hematoma (Bruise) Additional Instructions: You were evaluated for injuries after a fall today. Your CT scans did not show any broken bones in your face and your brain appeared normal Your x-rays did not show any fractures. Your EKG is normal. You have a large bruise or hematoma under your right eye. Please apply ice for 20-minute intervals for the next 24 to 48 hours. On Thursday you may switch to warm packs to help dissolve the bruise. Please apply bacitracin to your left wrist and right knee. You may take Tylenol 650 mg every 6 hours as needed for pain. Follow-up with your primary care doctor this week. Return to the ER for dizziness, lightheadedness, visual changes, or if you have any other changes in your symptoms. - Post Discharge Activity
[2019-04-29] MEDS ORDERED: ACETAMINOPHEN 500 MG TABLET (FP) ONE (15:39)
--- NOTE | 2019-04-30 13:32 | EKG ---
Test Reason : Blood Pressure : / mmHG Vent. Rate : 063 BPM Atrial Rate : 063 BPM P-R Int : 154 ms QRS Dur : 110 ms QT Int : 412 ms P-R-T Axes : 012 022 046 degrees QTc Int : 421 ms NORMAL SINUS RHYTHM NONSPECIFIC INTRAVENTRICULAR CONDUCTION DEFECT WHEN COMPARED WITH ECG OF 24-APR-2016 09:12, PREMATURE ATRIAL COMPLEXES ARE NO LONGER PRESENT Confirmed by TYRA ESCOBEDO MD ([id number]) on 04/30/2019 1:31:42 PM Referred By: Confirmed By:TYRA ESCOBEDO MD
== END 2019-04-29 16:37 | disposition home or self-care (01) ==
LOC: JER 13:41
PROC: 3E0234Z Introduction of Serum, Toxoid and Vaccine into Muscle, Percutaneous Approach (ICD-10-PCS; principal; 2019-04-29)
DX: S60.819A Abrasion of unspecified wrist, initial encounter (principal); Z88.8 Allergy status to other drugs, medicaments and biological substances; I10 Essential (primary) hypertension; E78.5 Hyperlipidemia, unspecified; R00.9 Unspecified abnormalities of heart beat
CPT/HCPCS: 70450-TC; 70486-TC; 73110-TC-LT-FY; 73110-TC-RT-FY; 73130-TC-LT-FY; 73130-TC-RT-FY; 73562-TC-RT-FY; 90715; 93005; 93010; 99285-25

== ENCOUNTER 2021-01-05 13:28 | Inpatient (IN) | payer OTHER, BC ==
[2021-01-05 14:51] VITALS: BMI 22.7
[2021-01-05] MEDS ORDERED: LIDOCAINE 5% TOPICAL PATCH TP ONE (15:33)
[2021-01-05] MEDS ORDERED: LIDOCAINE 5% TOPICAL PATCH ONE (15:38)
[2021-01-05] MEDS ORDERED: ACETAMINOPHEN 1000 MG/100 ML VIAL IVPB ONE (15:48)
[2021-01-05] MEDS ORDERED: ACETAMINOPHEN INJECTION 100 ML IVPB ONE (15:52)
[2021-01-05 17:20] LABS: BASO % 0.7 % (0-2.0); HEMATOCRIT 39.9 % (32.4-45.2); HEMOGLOBIN 13.7 GM/dL (10.7-15.3); LYMPH % 9.1 % (8-40); MCH 32.5 pg (25.7-33.7); MCHC 34.4 g/dl (32.0-36.0); MEAN CELL VOLUME 94.6 fl (80-96); MEAN PLT VOLUME 9.3 fl (7.5-11.1); MONO % 8.6 % (3.8-10.2); NEUT % 81.6 % (42.8-82.8); PLATELET COUNT 137 10^3/uL (134-434); RBC 4.22 M/mm3 (3.60-5.2); RDW 13.6 % (11.6-15.6); WHITE BLOOD COUNT 10.4 K/mm3 (4.0-10.0)
[2021-01-05 17:43] LABS: ALBUMIN 3.2 g/dl (3.4-5.0); BLOOD UREA NITROGEN 17.8 mg/dL (7-18); CALCIUM 8.6 mg/dL (8.5-10.1)
[2021-01-05 17:47] LABS: CREATININE 0.8 mg/dL (0.55-1.3)
[2021-01-05 17:48] LABS: TOT PROT 6.7 g/dl (6.4-8.2)
[2021-01-05] MEDS ORDERED: LIDOCAINE PATCH REMOVAL MC SCH (22:00)
[2021-01-06] MEDS: ACETAMINOPHEN 325 MG TABLET (FP) PO PRN ×4 (00:47→20:24)
[2021-01-06 06:42] LABS: BASO % 0.5 % (0-2.0); EOS % 0.1 % (0-4.5); HEMATOCRIT 39.5 % (32.4-45.2); HEMOGLOBIN 13.6 GM/dL (10.7-15.3); LYMPH % 11.9 % (8-40); MCH 32.7 pg (25.7-33.7); MCHC 34.4 g/dl (32.0-36.0); MEAN CELL VOLUME 94.9 fl (80-96); MEAN PLT VOLUME 9.4 fl (7.5-11.1); MONO % 12.1 % (3.8-10.2); NEUT % 75.4 % (42.8-82.8); PLATELET COUNT 131 10^3/uL (134-434); RBC 4.16 M/mm3 (3.60-5.2); RDW 13.2 % (11.6-15.6); WHITE BLOOD COUNT 7.8 K/mm3 (4.0-10.0)
[2021-01-06 07:00] LABS: CALCIUM 8.2 mg/dL (8.5-10.1)
[2021-01-06] MEDS ORDERED: LEVOTHYROXINE NA 75 MCG TABLET (FP) PO SCH (07:00)
[2021-01-06 07:04] LABS: CREATININE 0.7 mg/dL (0.55-1.3)
[2021-01-06] MEDS: ENOXAPARIN NA (PORCINE) 40 MG/0.4 ML DISP.SYRIN SQ SCH (09:00)
[2021-01-06] MEDS: MULTIVITAMINS THER W-MINERALS COMBO TABLET (FP) PO SCH (09:00)
[2021-01-06] MEDS: ASPIRIN 81 MG CHEWABLE TABLETS PO SCH (09:00)
[2021-01-06] MEDS: CHOLECALCIFEROL (VIT D3) 1,000 UNIT (25 MCG) TABLET PO SCH (09:00)
[2021-01-06] MEDS ORDERED: CINNAMON BARK 500 MG PO SCH (10:00)
[2021-01-06] MEDS: MELATONIN 5 MG TABLETS PO PRN (20:24)
[2021-01-06] MEDS: ATORVASTATIN CA 20 MG TABLET (FP) PO SCH ×2 (21:44→23:15)
[2021-01-06] MEDS ORDERED: ALPHA LIPOIC ACID 200 MG PO SCH (22:00)
[2021-01-07] MEDS: LEVOTHYROXINE NA 88 MCG TABLET (FP) PO SCH (06:14)
[2021-01-07 07:20] LABS: BASO % 1.9 % (0-2.0); EOS % 1.7 % (0-4.5); HEMATOCRIT 41.2 % (32.4-45.2); HEMOGLOBIN 14.2 GM/dL (10.7-15.3); LYMPH % 24.2 % (8-40); MCH 32.4 pg (25.7-33.7); MCHC 34.4 g/dl (32.0-36.0); MEAN CELL VOLUME 94.3 fl (80-96); MONO % 19.8 % (3.8-10.2); NEUT % 52.4 % (42.8-82.8); PLATELET COUNT 123 10^3/uL (134-434); RBC 4.37 M/mm3 (3.60-5.2); RDW 13.3 % (11.6-15.6); WHITE BLOOD COUNT 4.5 K/mm3 (4.0-10.0)
[2021-01-07 07:47] LABS: ALBUMIN 2.9 g/dl (3.4-5.0); BLOOD UREA NITROGEN 15.2 mg/dL (7-18); CALCIUM 8.1 mg/dL (8.5-10.1)
[2021-01-07 07:50] LABS: CREATININE 0.6 mg/dL (0.55-1.3)
[2021-01-07 07:51] LABS: BILIRUBIN,TOTAL 1.1 mg/dL (0.2-1)
[2021-01-07 07:52] LABS: TOT PROT 6.2 g/dl (6.4-8.2)
[2021-01-07] MEDS: ACETAMINOPHEN 325 MG TABLET (FP) PO PRN ×3 (08:47→21:31)
[2021-01-07] MEDS: MULTIVITAMINS THER W-MINERALS COMBO TABLET (FP) PO SCH (09:07)
[2021-01-07] MEDS: ASPIRIN 81 MG CHEWABLE TABLETS PO SCH (09:07)
[2021-01-07] MEDS: ENOXAPARIN NA (PORCINE) 40 MG/0.4 ML DISP.SYRIN SQ SCH (09:08)
[2021-01-07] MEDS: CHOLECALCIFEROL (VIT D3) 1,000 UNIT (25 MCG) TABLET PO SCH (09:08)
[2021-01-07] MEDS: ATORVASTATIN CA 20 MG TABLET (FP) PO SCH (21:32)
[2021-01-07] MEDS: MELATONIN 5 MG TABLETS PO PRN (21:32)
[2021-01-08] MEDS: LEVOTHYROXINE NA 88 MCG TABLET (FP) PO SCH (06:10)
[2021-01-08] MEDS ORDERED: oxyCODONE HCL 5 MG TABLET PO PRN (09:35)
[2021-01-08] MEDS: ASPIRIN 81 MG CHEWABLE TABLETS PO SCH (09:44)
[2021-01-08] MEDS: CHOLECALCIFEROL (VIT D3) 1,000 UNIT (25 MCG) TABLET PO SCH (09:44)
[2021-01-08] MEDS: MULTIVITAMINS THER W-MINERALS COMBO TABLET (FP) PO SCH (09:44)
[2021-01-08] MEDS: ENOXAPARIN NA (PORCINE) 40 MG/0.4 ML DISP.SYRIN SQ SCH (09:46)
[2021-01-08] MEDS ORDERED: ACETAMINOPHEN 325 MG TABLET (FP) PO PRN (11:51)
[2021-01-08] MEDS: oxyCODONE HCL 5 MG TABLET PO PRN ×2 (16:13→21:44)
[2021-01-08] MEDS: MELATONIN 5 MG TABLETS PO PRN (21:44)
[2021-01-08] MEDS: ATORVASTATIN CA 20 MG TABLET (FP) PO SCH (21:44)
[2021-01-09] MEDS: LEVOTHYROXINE NA 88 MCG TABLET (FP) PO SCH (06:30)
[2021-01-09] MEDS: MULTIVITAMINS THER W-MINERALS COMBO TABLET (FP) PO SCH (09:04)
[2021-01-09] MEDS: CHOLECALCIFEROL (VIT D3) 1,000 UNIT (25 MCG) TABLET PO SCH (09:04)
[2021-01-09] MEDS: oxyCODONE HCL 5 MG TABLET PO PRN ×3 (09:05→22:27)
[2021-01-09] MEDS: ASPIRIN 81 MG CHEWABLE TABLETS PO SCH (09:05)
[2021-01-09] MEDS: ENOXAPARIN NA (PORCINE) 40 MG/0.4 ML DISP.SYRIN SQ SCH (09:06)
[2021-01-09] MEDS: MELATONIN 5 MG TABLETS PO PRN (22:28)
[2021-01-09] MEDS: ATORVASTATIN CA 20 MG TABLET (FP) PO SCH (22:28)
[2021-01-10] MEDS ORDERED: PT OWN MED DRAWER 7, Y5N ONE (06:44)
[2021-01-10] MEDS: LEVOTHYROXINE NA 88 MCG TABLET (FP) PO SCH (07:01)
[2021-01-10] MEDS: CHOLECALCIFEROL (VIT D3) 1,000 UNIT (25 MCG) TABLET PO SCH (10:36)
[2021-01-10] MEDS: ENOXAPARIN NA (PORCINE) 40 MG/0.4 ML DISP.SYRIN SQ SCH (10:36)
[2021-01-10] MEDS: MULTIVITAMINS THER W-MINERALS COMBO TABLET (FP) PO SCH (10:36)
[2021-01-10] MEDS: ASPIRIN 81 MG CHEWABLE TABLETS PO SCH (10:36)
[2021-01-10] MEDS: oxyCODONE HCL 5 MG TABLET PO PRN (17:57)
[2021-01-10] MEDS: ATORVASTATIN CA 20 MG TABLET (FP) PO SCH (21:43)
[2021-01-11] MEDS: oxyCODONE HCL 5 MG TABLET PO PRN ×2 (02:41→09:39)
[2021-01-11] MEDS ORDERED: PT OWN MED DRAWER 7, Y5N ONE (06:20)
[2021-01-11] MEDS: LEVOTHYROXINE NA 88 MCG TABLET (FP) PO SCH (06:22)
[2021-01-11] MEDS: ENOXAPARIN NA (PORCINE) 40 MG/0.4 ML DISP.SYRIN SQ SCH (09:39)
[2021-01-11] MEDS: MULTIVITAMINS THER W-MINERALS COMBO TABLET (FP) PO SCH (09:39)
[2021-01-11] MEDS: ASPIRIN 81 MG CHEWABLE TABLETS PO SCH (09:39)
[2021-01-11] MEDS: CHOLECALCIFEROL (VIT D3) 1,000 UNIT (25 MCG) TABLET PO SCH (09:40)
[2021-01-11 10:25] VITALS: BP 138/66; PULSE 66; TEMP 98
== END 2021-01-11 13:34 | DRG 552 ==
LOC: JER 13:28 → JERBED 17:41 → JICU 01-06 00:44 → OBSVTOIN 01-07 09:54 → J6S 01-09 13:46
PROVIDERS: ADMIT Internal Medicine; ATTEND Family Medicine
DX: S32.001A Stable burst fracture of unspecified lumbar vertebra, initial encounter for closed fracture (principal); S63.8X2A Sprain of other part of left wrist and hand, initial encounter; I10 Essential (primary) hypertension; M81.0 Age-related osteoporosis without current pathological fracture; I49.9 Cardiac arrhythmia, unspecified; E78.5 Hyperlipidemia, unspecified; E03.9 Hypothyroidism, unspecified; W19.XXXA Unspecified fall, initial encounter; Y93.9 Activity, unspecified; Y92.89 Other specified places as the place of occurrence of the external cause; Y99.9 Unspecified external cause status
CPT/HCPCS: 36415; 72148-TC; 80048; 80053; 85025; 97116-GP; 97162-GP; 99285-25; C9803; G0378; J0131; U0003; U0005

== ENCOUNTER 2022-01-21 11:03 | Observation (INO) | payer OTHER, BC ==
[2022-01-21 14:27] LABS: HEMATOCRIT 44.5 % (32.4-45.2); HEMOGLOBIN 14.5 GM/dL (10.7-15.3); MCH 31.4 pg (25.7-33.7); MCHC 32.7 g/dl (32.0-36.0); MEAN PLT VOLUME 9.3 fl (7.5-11.1); PLATELET COUNT 146 10^3/uL (134-434); RBC 4.63 M/mm3 (3.60-5.2); RDW 13.7 % (11.6-15.6); WHITE BLOOD COUNT 6.3 K/mm3 (4.0-10.0)
[2022-01-21 14:34] LABS: EPI CELLS 26 /uL (0-25.1); HYALINE CASTS 2 /uL (0-3.1); PH,URINE 5.5 (5.0-8.0); URINE APPEARANCE CLOUDY; URINE BACTERIA 34 /uL (0-1359); URINE BILIRUBIN NEGATIVE (NEGATIVE); URINE COLOR DK YELLOW; URINE GLUCOSE (UA) NEGATIVE (NEGATIVE); URINE KETONE TRACE (NEGATIVE); URINE LEUK ESTERASE NEGATIVE (NEGATIVE); URINE NITRITE NEGATIVE (NEGATIVE); URINE PROTEIN 1+ (NEGATIVE); URINE WBC 26 /uL (0-25.8)
[2022-01-21 14:55] LABS: URINE RBC 62.5 /uL (0-23.9)
[2022-01-21 14:56] LABS: CALCIUM 8.5 mg/dL (8.5-10.1); URINE CRYSTALS MODERATE CA OXALATE /hpf
[2022-01-21 14:57] LABS: ALBUMIN 3.2 g/dl (3.4-5.0); BLOOD UREA NITROGEN 8.7 mg/dL (7-18)
[2022-01-21 15:00] LABS: CREATININE 0.7 mg/dL (0.55-1.3)
[2022-01-21 15:02] LABS: BILIRUBIN,TOTAL 0.5 mg/dL (0.2-1); TOT PROT 6.6 g/dl (6.4-8.2)
[2022-01-21] MEDS ORDERED: ACETAMINOPHEN 325 MG TABLET (FP) PO PRN (19:03)
[2022-01-21] MEDS ORDERED: POTASSIUM CHLORIDE TABS 20 MEQ TABLET.ER (FP) PO ONE ×2 (20:30→21:01)
[2022-01-21] MEDS ORDERED: ATORVASTATIN CA 20 MG TABLET (FP) ONE (21:01)
[2022-01-21] MEDS: ATORVASTATIN CA 20 MG TABLET (FP) PO SCH (21:09)
[2022-01-21 21:36] LABS: MAGNESIUM 1.7 mg/dL (1.8-2.4)
[2022-01-22 00:13] VITALS: BMI 24.7
[2022-01-22] MEDS: LEVOTHYROXINE NA 88 MCG TABLET (FP) PO SCH (06:58)
[2022-01-22] MEDS: ENOXAPARIN NA (PORCINE) 40 MG/0.4 ML DISP.SYRIN SQ SCH (10:06)
[2022-01-22] MEDS: ASPIRIN COATED 81 MG TABLET.EC PO SCH (10:06)
[2022-01-22 10:49] LABS: BASO % 0.8 % (0-2.0); EOS % 0.5 % (0-4.5); HEMATOCRIT 41.2 % (32.4-45.2); HEMOGLOBIN 13.5 GM/dL (10.7-15.3); LYMPH % 25.8 % (8-40); MCH 31.3 pg (25.7-33.7); MCHC 32.7 g/dl (32.0-36.0); MEAN CELL VOLUME 95.7 fl (80-96); MONO % 11.7 % (3.8-10.2); NEUT % 61.2 % (42.8-82.8); PLATELET COUNT 158 10^3/uL (134-434); RBC 4.31 M/mm3 (3.60-5.2); RDW 13.8 % (11.6-15.6); WHITE BLOOD COUNT 5.6 K/mm3 (4.0-10.0)
[2022-01-22 11:38] LABS: CALCIUM 8.4 mg/dL (8.5-10.1)
[2022-01-22 11:39] LABS: ALBUMIN 2.8 g/dl (3.4-5.0); BLOOD UREA NITROGEN 9.5 mg/dL (7-18); CREATININE 0.7 mg/dL (0.55-1.3)
[2022-01-22 11:40] LABS: TOT PROT 5.8 g/dl (6.4-8.2)
[2022-01-22 11:41] LABS: BILIRUBIN,TOTAL 0.6 mg/dL (0.2-1)
[2022-01-22] MEDS ORDERED: POTASSIUM CHLORIDE TABS 20 MEQ TABLET.ER (FP) PO ONE (12:15)
[2022-01-22] MEDS: ATORVASTATIN CA 20 MG TABLET (FP) PO SCH (22:22)
[2022-01-23] MEDS: LEVOTHYROXINE NA 88 MCG TABLET (FP) PO SCH (06:38)
[2022-01-23 10:05] LABS: BASO % 1.4 % (0-2.0); HEMATOCRIT 43.4 % (32.4-45.2); HEMOGLOBIN 14.8 GM/dL (10.7-15.3); LYMPH % 33.9 % (8-40); MCH 32.3 pg (25.7-33.7); MEAN CELL VOLUME 95.2 fl (80-96); MONO % 10.4 % (3.8-10.2); NEUT % 52.3 % (42.8-82.8); PLATELET COUNT 152 10^3/uL (134-434); RBC 4.56 M/mm3 (3.60-5.2); RDW 13.6 % (11.6-15.6); WHITE BLOOD COUNT 4.9 K/mm3 (4.0-10.0)
[2022-01-23 10:17] LABS: BLOOD UREA NITROGEN 10.4 mg/dL (7-18); CALCIUM 8.5 mg/dL (8.5-10.1)
[2022-01-23 10:18] LABS: ALBUMIN 2.9 g/dl (3.4-5.0); MAGNESIUM 1.8 mg/dL (1.8-2.4)
[2022-01-23 10:21] LABS: CREATININE 0.7 mg/dL (0.55-1.3)
[2022-01-23 10:22] LABS: BILIRUBIN,TOTAL 0.7 mg/dL (0.2-1); TOT PROT 6.2 g/dl (6.4-8.2)
[2022-01-23] MEDS: ESCITALOPRAM OXALATE 10 MG TABLET PO SCH (10:29)
[2022-01-23] MEDS: ASPIRIN COATED 81 MG TABLET.EC PO SCH (10:29)
[2022-01-23] MEDS: ENOXAPARIN NA (PORCINE) 40 MG/0.4 ML DISP.SYRIN SQ SCH (10:30)
[2022-01-23] MEDS: CHOLECALCIFEROL (VIT D3) 1,000 UNIT (25 MCG) TABLET PO SCH (10:30)
[2022-01-23] MEDS: MULTIVITAMINS (DAILY MVI) TABLET (FP) PO SCH (10:30)
[2022-01-23] MEDS: DONEPEZIL HCL 10 MG TABLET (FP) PO SCH (10:30)
[2022-01-23] MEDS: MEMANTINE HCL 5 MG TABLET (UD) PO SCH ×2 (11:22→22:52)
[2022-01-23] MEDS: ATORVASTATIN CA 20 MG TABLET (FP) PO SCH (21:34)
[2022-01-24] MEDS: LEVOTHYROXINE NA 88 MCG TABLET (FP) PO SCH (06:09)
[2022-01-24 09:14] LABS: BASO % 1.2 % (0-2.0); EOS % 2.6 % (0-4.5); HEMATOCRIT 43.1 % (32.4-45.2); HEMOGLOBIN 14.1 GM/dL (10.7-15.3); MCH 31.4 pg (25.7-33.7); MCHC 32.6 g/dl (32.0-36.0); MEAN CELL VOLUME 96.4 fl (80-96); MONO % 12.9 % (3.8-10.2); NEUT % 52.3 % (42.8-82.8); PLATELET COUNT 172 10^3/uL (134-434); RBC 4.47 M/mm3 (3.60-5.2); RDW 13.6 % (11.6-15.6); WHITE BLOOD COUNT 4.3 K/mm3 (4.0-10.0)
[2022-01-24 09:42] LABS: CALCIUM 8.5 mg/dL (8.5-10.1)
[2022-01-24 09:43] LABS: ALBUMIN 2.8 g/dl (3.4-5.0); BLOOD UREA NITROGEN 11.6 mg/dL (7-18); MAGNESIUM 1.9 mg/dL (1.8-2.4)
[2022-01-24 09:44] LABS: CREATININE 0.7 mg/dL (0.55-1.3)
[2022-01-24 09:46] LABS: BILIRUBIN,TOTAL 0.6 mg/dL (0.2-1); TOT PROT 5.9 g/dl (6.4-8.2)
[2022-01-24] MEDS: MEMANTINE HCL 5 MG TABLET (UD) PO SCH ×2 (10:33→22:28)
[2022-01-24] MEDS: ESCITALOPRAM OXALATE 10 MG TABLET PO SCH (10:33)
[2022-01-24] MEDS: ASPIRIN COATED 81 MG TABLET.EC PO SCH (10:33)
[2022-01-24] MEDS: MULTIVITAMINS (DAILY MVI) TABLET (FP) PO SCH (10:33)
[2022-01-24] MEDS: ENOXAPARIN NA (PORCINE) 40 MG/0.4 ML DISP.SYRIN SQ SCH (10:33)
[2022-01-24] MEDS: DONEPEZIL HCL 10 MG TABLET (FP) PO SCH (10:33)
[2022-01-24] MEDS: CHOLECALCIFEROL (VIT D3) 1,000 UNIT (25 MCG) TABLET PO SCH (10:33)
[2022-01-24] MEDS: ATORVASTATIN CA 20 MG TABLET (FP) PO SCH (22:28)
[2022-01-25] MEDS: LEVOTHYROXINE NA 88 MCG TABLET (FP) PO SCH (07:04)
[2022-01-25 07:39] VITALS: RESP 20
[2022-01-25 10:15] LABS: BASO % 1.2 % (0-2.0); EOS % 1.8 % (0-4.5); HEMATOCRIT 43.9 % (32.4-45.2); HEMOGLOBIN 14.6 GM/dL (10.7-15.3); LYMPH % 27.3 % (8-40); MCH 31.7 pg (25.7-33.7); MCHC 33.2 g/dl (32.0-36.0); MEAN CELL VOLUME 95.4 fl (80-96); MEAN PLT VOLUME 8.9 fl (7.5-11.1); MONO % 12.5 % (3.8-10.2); NEUT % 57.2 % (42.8-82.8); PLATELET COUNT 193 10^3/uL (134-434); RDW 13.7 % (11.6-15.6); WHITE BLOOD COUNT 3.9 K/mm3 (4.0-10.0)
[2022-01-25 10:27] LABS: CALCIUM 8.8 mg/dL (8.5-10.1)
[2022-01-25 10:28] LABS: CREATININE 0.9 mg/dL (0.55-1.3); MAGNESIUM 1.8 mg/dL (1.8-2.4)
[2022-01-25 10:30] LABS: BILIRUBIN,TOTAL 0.7 mg/dL (0.2-1); TOT PROT 6.3 g/dl (6.4-8.2)
[2022-01-25] MEDS: ASPIRIN COATED 81 MG TABLET.EC PO SCH (10:46)
[2022-01-25] MEDS: CHOLECALCIFEROL (VIT D3) 1,000 UNIT (25 MCG) TABLET PO SCH (10:46)
[2022-01-25] MEDS: DONEPEZIL HCL 10 MG TABLET (FP) PO SCH (10:46)
[2022-01-25] MEDS: MULTIVITAMINS (DAILY MVI) TABLET (FP) PO SCH (10:46)
[2022-01-25] MEDS: ENOXAPARIN NA (PORCINE) 40 MG/0.4 ML DISP.SYRIN SQ SCH (10:47)
[2022-01-25] MEDS: ESCITALOPRAM OXALATE 10 MG TABLET PO SCH (10:47)
[2022-01-25] MEDS: MEMANTINE HCL 5 MG TABLET (UD) PO SCH (10:47)
[2022-01-25 12:19] VITALS: BP 128/68; PULSE 72; TEMP 97.6
== END 2022-01-25 13:14 | disposition home or self-care (01) ==
LOC: JER 11:03 → UNDOADMOB 14:53 → JERBED 14:53 → OBSVTOIN 21:00 → JERBED 21:00 → INTOOBSV 21:00 → JERBED 22:28 → J8W 22:28
PROVIDERS: ADMIT Family Medicine; ATTEND Nurse Practitioner Family
DX: G93.41 Metabolic encephalopathy (principal); U07.1 COVID-19; E11.9 Type 2 diabetes mellitus without complications; R68.89 Other general symptoms and signs; I49.9 Cardiac arrhythmia, unspecified; E03.9 Hypothyroidism, unspecified; Z29.8 Encounter for other specified prophylactic measures; Z88.8 Allergy status to other drugs, medicaments and biological substances
CPT/HCPCS: 36415; 70450-TC; 71046-TC-FY; 80053; 81003; 82607; 82728; 83615; 83735; 84439; 84443; 84484; 85025; 85027; 86140; 86780; 87086; 93005; 93010; 96372; 97116-GP; 97161-GP; 99285-25; C9803-CS; G0378; U0003; U0005

== ENCOUNTER 2022-04-18 13:26 | Inpatient (IN) | payer OTHER, BC ==
[2022-04-18 15:46] LABS: BASO % 1.3 % (0-2.0); EOS % 1.1 % (0-4.5); HEMATOCRIT 43.4 % (32.4-45.2); HEMOGLOBIN 14.8 GM/dL (10.7-15.3); LYMPH % 25.6 % (8-40); MCH 33.3 pg (25.7-33.7); MCHC 34.2 g/dl (32.0-36.0); MEAN CELL VOLUME 97.6 fl (80-96); MEAN PLT VOLUME 8.7 fl (7.5-11.1); MONO % 12.3 % (3.8-10.2); NEUT % 59.7 % (42.8-82.8); PLATELET COUNT 169 10^3/uL (134-434); RBC 4.45 M/mm3 (3.60-5.2); RDW 13.6 % (11.6-15.6); WHITE BLOOD COUNT 4.5 K/mm3 (4.0-10.0)
[2022-04-18 16:13] LABS: ALBUMIN 3.4 g/dl (3.4-5.0); BLOOD UREA NITROGEN 11.8 mg/dL (7-18); MAGNESIUM 1.9 mg/dL (1.8-2.4)
[2022-04-18 16:16] LABS: PHOSPHOROUS 3.3 mg/dL (2.5-4.9)
[2022-04-18 16:17] LABS: BILIRUBIN,TOTAL 0.8 mg/dL (0.2-1); TOT PROT 6.7 g/dl (6.4-8.2)
[2022-04-18 17:40] LABS: URINE APPEARANCE CLEAR; URINE BILIRUBIN NEGATIVE (NEGATIVE); URINE COLOR YELLOW; URINE GLUCOSE (UA) NEGATIVE (NEGATIVE); URINE KETONE NEGATIVE (NEGATIVE); URINE LEUK ESTERASE NEGATIVE (NEGATIVE); URINE NITRITE NEGATIVE (NEGATIVE); URINE PROTEIN NEGATIVE (NEGATIVE); URINE UROBILINOGEN 0.2 mg/dL (0.2-1.0)
[2022-04-18] MEDS ORDERED: ACETAMINOPHEN 325 MG TABLET (FP) PO PRN (18:30)
[2022-04-18] MEDS ORDERED: amLODIPine BESYLATE 5 MG TABLET (FP) ONE (18:50)
[2022-04-18] MEDS: D5-1/2NS+20 MEQ KCL - 20 MEQ/1,000 ML INFUS.BAG IV SCH (21:31)
[2022-04-18] MEDS: amLODIPine BESYLATE 5 MG TABLET (FP) PO SCH (21:47)
[2022-04-18] MEDS: HEPARIN NA (PORCINE) 5,000 UNITS/ML 1ML VIAL SQ SCH (21:47)
[2022-04-18] MEDS: ATORVASTATIN CA 20 MG TABLET (FP) PO SCH (21:48)
[2022-04-18] MEDS: MEMANTINE HCL 5 MG TABLET (UD) PO SCH (22:04)
[2022-04-18 23:01] VITALS: BMI 25.4
[2022-04-19] MEDS: LEVOTHYROXINE NA 88 MCG TABLET (FP) PO SCH (06:13)
[2022-04-19 08:44] LABS: BASO % 2.4 % (0-2.0); EOS % 2.3 % (0-4.5); HEMATOCRIT 39.6 % (32.4-45.2); HEMOGLOBIN 13.6 GM/dL (10.7-15.3); LYMPH % 33.1 % (8-40); MCH 33.3 pg (25.7-33.7); MCHC 34.3 g/dl (32.0-36.0); MEAN CELL VOLUME 97.2 fl (80-96); MEAN PLT VOLUME 8.7 fl (7.5-11.1); MONO % 17.2 % (3.8-10.2); PLATELET COUNT 156 10^3/uL (134-434); RBC 4.07 M/mm3 (3.60-5.2); RDW 13.6 % (11.6-15.6); WHITE BLOOD COUNT 3.9 K/mm3 (4.0-10.0)
[2022-04-19 09:04] LABS: CHLORIDE 105 mmol/L (98-107); SODIUM 134 mmol/L (136-145)
[2022-04-19 09:13] LABS: ANION GAP 4 MMOL/L (8-16); CALCIUM 7.8 mg/dL (8.5-10.1); CO2 25 mmol/L (21-32)
[2022-04-19 09:14] LABS: BLOOD UREA NITROGEN 10.5 mg/dL (7-18)
[2022-04-19 09:15] LABS: CREATININE 0.9 mg/dL (0.55-1.3); SGPT/ALT 21 U/L (13-61)
[2022-04-19 09:16] LABS: SGOT/AST 17 U/L (15-37)
[2022-04-19 09:17] LABS: BILIRUBIN,TOTAL 0.9 mg/dL (0.2-1); TOT PROT 5.8 g/dl (6.4-8.2)
[2022-04-19 09:18] LABS: ALK PHOS 86 U/L (45-117)
[2022-04-19 09:19] LABS: GLUCOSE,RANDOM 423 mg/dL (74-106)
[2022-04-19] MEDS: DONEPEZIL HCL 10 MG TABLET (FP) PO SCH (10:45)
[2022-04-19] MEDS: amLODIPine BESYLATE 5 MG TABLET (FP) PO SCH (10:45)
[2022-04-19] MEDS: ESCITALOPRAM OXALATE 10 MG TABLET PO SCH (10:45)
[2022-04-19] MEDS: HEPARIN NA (PORCINE) 5,000 UNITS/ML 1ML VIAL SQ SCH ×2 (10:45→21:45)
[2022-04-19] MEDS: ASPIRIN 81 MG CHEWABLE TABLETS PO SCH (10:45)
[2022-04-19] MEDS: MULTIVITAMINS (DAILY MVI) TABLET (FP) PO SCH (10:45)
[2022-04-19] MEDS: PANTOPRAZOLE 20 MG TABLET PO SCH (10:45)
[2022-04-19] MEDS: MEMANTINE HCL 5 MG TABLET (UD) PO SCH ×2 (10:53→21:46)
[2022-04-19] MEDS: D5-1/2NS+20 MEQ KCL - 20 MEQ/1,000 ML INFUS.BAG IV SCH (17:02)
[2022-04-19] MEDS: ATORVASTATIN CA 20 MG TABLET (FP) PO SCH (21:46)
[2022-04-20] MEDS: LEVOTHYROXINE NA 88 MCG TABLET (FP) PO SCH (06:17)
[2022-04-20] MEDS: amLODIPine BESYLATE 5 MG TABLET (FP) PO SCH (09:11)
[2022-04-20] MEDS: DONEPEZIL HCL 10 MG TABLET (FP) PO SCH (09:11)
[2022-04-20] MEDS: MULTIVITAMINS (DAILY MVI) TABLET (FP) PO SCH (09:11)
[2022-04-20] MEDS: ESCITALOPRAM OXALATE 10 MG TABLET PO SCH (09:11)
[2022-04-20] MEDS: HEPARIN NA (PORCINE) 5,000 UNITS/ML 1ML VIAL SQ SCH ×2 (09:11→22:43)
[2022-04-20] MEDS: PANTOPRAZOLE 20 MG TABLET PO SCH (09:11)
[2022-04-20] MEDS: MEMANTINE HCL 5 MG TABLET (UD) PO SCH ×2 (09:11→22:43)
[2022-04-20] MEDS: ASPIRIN 81 MG CHEWABLE TABLETS PO SCH (09:11)
[2022-04-20 10:10] LABS: CALCIUM 8.6 mg/dL (8.5-10.1)
[2022-04-20 10:11] LABS: BLOOD UREA NITROGEN 11.4 mg/dL (7-18)
[2022-04-20 10:14] LABS: CREATININE 0.9 mg/dL (0.55-1.3)
[2022-04-20] MEDS: D5-1/2NS+20 MEQ KCL - 20 MEQ/1,000 ML INFUS.BAG IV SCH (22:43)
[2022-04-20] MEDS: ATORVASTATIN CA 20 MG TABLET (FP) PO SCH (22:43)
[2022-04-21] MEDS: D5-1/2NS+20 MEQ KCL - 20 MEQ/1,000 ML INFUS.BAG IV SCH ×2 (05:29→22:09)
[2022-04-21] MEDS: LEVOTHYROXINE NA 88 MCG TABLET (FP) PO SCH (06:40)
[2022-04-21] MEDS: MEMANTINE HCL 5 MG TABLET (UD) PO SCH ×2 (09:50→22:10)
[2022-04-21] MEDS: DONEPEZIL HCL 10 MG TABLET (FP) PO SCH (09:50)
[2022-04-21] MEDS: ESCITALOPRAM OXALATE 10 MG TABLET PO SCH (09:50)
[2022-04-21] MEDS: MULTIVITAMINS (DAILY MVI) TABLET (FP) PO SCH (09:50)
[2022-04-21] MEDS: ASPIRIN 81 MG CHEWABLE TABLETS PO SCH (09:50)
[2022-04-21] MEDS: HEPARIN NA (PORCINE) 5,000 UNITS/ML 1ML VIAL SQ SCH ×2 (09:50→22:10)
[2022-04-21] MEDS: amLODIPine BESYLATE 5 MG TABLET (FP) PO SCH (09:50)
[2022-04-21] MEDS: PANTOPRAZOLE 20 MG TABLET PO SCH (09:51)
[2022-04-21] MEDS: ATORVASTATIN CA 20 MG TABLET (FP) PO SCH (22:10)
[2022-04-22] MEDS: D5-1/2NS+20 MEQ KCL - 20 MEQ/1,000 ML INFUS.BAG IV SCH (06:56)
[2022-04-22] MEDS: LEVOTHYROXINE NA 88 MCG TABLET (FP) PO SCH (06:57)
[2022-04-22] MEDS: HEPARIN NA (PORCINE) 5,000 UNITS/ML 1ML VIAL SQ SCH (09:09)
[2022-04-22] MEDS: MULTIVITAMINS (DAILY MVI) TABLET (FP) PO SCH (09:10)
[2022-04-22] MEDS: amLODIPine BESYLATE 5 MG TABLET (FP) PO SCH (09:10)
[2022-04-22] MEDS: ASPIRIN 81 MG CHEWABLE TABLETS PO SCH (09:10)
[2022-04-22] MEDS: ESCITALOPRAM OXALATE 10 MG TABLET PO SCH (09:10)
[2022-04-22] MEDS: PANTOPRAZOLE 20 MG TABLET PO SCH (09:10)
[2022-04-22] MEDS: MEMANTINE HCL 5 MG TABLET (UD) PO SCH (09:13)
[2022-04-22] MEDS ORDERED: ESCITALOPRAM OXALATE 10 MG TABLET PO SCH (10:00)
[2022-04-22 16:56] VITALS: BP 118/71; PULSE 82; RESP 18; TEMP 97.9
== END 2022-04-22 13:56 | disposition home health service (06) | DRG 948 ==
LOC: JER 13:26 → JERBED 16:50 → J8W 20:54
PROVIDERS: ADMIT Family Medicine; ATTEND Family Medicine
DX: R53.1 Weakness (principal); I10 Essential (primary) hypertension; E11.9 Type 2 diabetes mellitus without complications; E03.9 Hypothyroidism, unspecified; E78.5 Hyperlipidemia, unspecified; F32.A Depression, unspecified; R26.81 Unsteadiness on feet
CPT/HCPCS: 0241U-QW; 36415; 70551-TC; 71046-TC-FY; 80048; 80053; 81003; 82962; 83036; 83735; 84100; 84443; 84484; 85025; 87086; 93005; 93010; 97116-GP; 97161-GP; 99285-25; J1644

== ENCOUNTER 2022-06-01 14:52 | Inpatient (IN) | payer OTHER, BC ==
[2022-06-01 16:59] LABS: BASO % 0.4 % (0-2.0); EOS % 0.1 % (0-4.5); HEMATOCRIT 41.8 % (32.4-45.2); HEMOGLOBIN 14.4 GM/dL (10.7-15.3); LYMPH % 9.1 % (8-40); MCH 32.5 pg (25.7-33.7); MCHC 34.4 g/dl (32.0-36.0); MEAN CELL VOLUME 94.6 fl (80-96); MEAN PLT VOLUME 8.5 fl (7.5-11.1); MONO % 8.9 % (3.8-10.2); NEUT % 81.5 % (42.8-82.8); PLATELET COUNT 175 10^3/uL (134-434); RBC 4.42 M/mm3 (3.60-5.2); RDW 13.4 % (11.6-15.6); URINE APPEARANCE CLEAR; URINE BILIRUBIN NEGATIVE (NEGATIVE); URINE COLOR YELLOW; URINE GLUCOSE (UA) NEGATIVE (NEGATIVE); URINE KETONE NEGATIVE (NEGATIVE); URINE LEUK ESTERASE NEGATIVE (NEGATIVE); URINE NITRITE NEGATIVE (NEGATIVE); URINE PROTEIN TRACE (NEGATIVE); URINE UROBILINOGEN 0.2 mg/dL (0.2-1.0); WHITE BLOOD COUNT 8.2 K/mm3 (4.0-10.0)
[2022-06-01 17:07] LABS: INR 1.17 (0.83-1.09); PROTHROMBIN TIME (PATIENT) 13.5 SEC (9.7-13.0)
[2022-06-01 17:09] LABS: ACTIVATED PTT 28.4 SECONDS (25.2-36.5)
[2022-06-01 17:21] LABS: ALBUMIN 3.5 g/dl (3.4-5.0); BLOOD UREA NITROGEN 17.3 mg/dL (7-18); MAGNESIUM 1.9 mg/dL (1.8-2.4)
[2022-06-01 17:24] LABS: CREATININE 0.9 mg/dL (0.55-1.3)
[2022-06-01 17:25] LABS: BILIRUBIN,TOTAL 0.8 mg/dL (0.2-1); TOT PROT 7.1 g/dl (6.4-8.2)
[2022-06-01] MEDS ORDERED: ACETAMINOPHEN 325 MG TABLET (FP) PO ONE (20:35)
[2022-06-01] MEDS ORDERED: ACETAMINOPHEN 325 MG TABLET (FP) ONE (21:11)
[2022-06-01] MEDS ORDERED: DOCUSATE SODIUM 100 MG CAPSULE (FP) PO PRN (21:45)
[2022-06-02] MEDS: INSULIN SLIDING SCALE (NOVOLOG) 1 VIAL SQ SCH ×5 (00:10→21:58)
[2022-06-02 02:28] VITALS: BMI 26.6
[2022-06-02] MEDS ORDERED: ACETAMINOPHEN 325 MG TABLET (FP) PO PRN (03:00)
[2022-06-02] MEDS: LEVOTHYROXINE NA 88 MCG TABLET (FP) PO SCH (07:38)
[2022-06-02 08:25] LABS: BASO % 0.7 % (0-2.0); EOS % 0.5 % (0-4.5); HEMATOCRIT 36.5 % (32.4-45.2); LYMPH % 20.7 % (8-40); MCH 33.3 pg (25.7-33.7); MCHC 35.5 g/dl (32.0-36.0); MEAN CELL VOLUME 93.8 fl (80-96); MEAN PLT VOLUME 8.7 fl (7.5-11.1); MONO % 16.3 % (3.8-10.2); NEUT % 61.8 % (42.8-82.8); PLATELET COUNT 157 10^3/uL (134-434); RDW 13.2 % (11.6-15.6); WHITE BLOOD COUNT 6.4 K/mm3 (4.0-10.0)
[2022-06-02] MEDS: CHOLECALCIFEROL (VIT D3) 1,000 UNIT (25 MCG) TABLET PO SCH (09:15)
[2022-06-02] MEDS: ASPIRIN COATED 81 MG TABLET.EC PO SCH (09:15)
[2022-06-02] MEDS: MEMANTINE HCL 5 MG TABLET (UD) PO SCH ×2 (09:15→21:57)
[2022-06-02] MEDS: PANTOPRAZOLE 20 MG TABLET PO SCH (09:15)
[2022-06-02 09:35] LABS: BLOOD UREA NITROGEN 25.1 mg/dL (7-18); CALCIUM 8.8 mg/dL (8.5-10.1)
[2022-06-02] MEDS ORDERED: amLODIPine BESYLATE 5 MG TABLET (FP) PO SCH (10:00)
[2022-06-02] MEDS ORDERED: ESCITALOPRAM OXALATE 10 MG TABLET PO SCH (10:00)
[2022-06-02] MEDS: MELATONIN 1 MG TABLET PO SCH (21:58)
[2022-06-02] MEDS: ATORVASTATIN CA 20 MG TABLET (FP) PO SCH (21:58)
[2022-06-03] MEDS: LEVOTHYROXINE NA 88 MCG TABLET (FP) PO SCH (06:00)
[2022-06-03] MEDS: INSULIN SLIDING SCALE (NOVOLOG) 1 VIAL SQ SCH ×4 (06:00→21:20)
[2022-06-03] MEDS: ASPIRIN COATED 81 MG TABLET.EC PO SCH (10:30)
[2022-06-03] MEDS: ESCITALOPRAM OXALATE 10 MG TABLET PO SCH (10:30)
[2022-06-03] MEDS: MEMANTINE HCL 5 MG TABLET (UD) PO SCH ×2 (10:31→21:19)
[2022-06-03] MEDS: CHOLECALCIFEROL (VIT D3) 1,000 UNIT (25 MCG) TABLET PO SCH (10:31)
[2022-06-03] MEDS: PANTOPRAZOLE 20 MG TABLET PO SCH (10:31)
[2022-06-03 12:15] VITALS: RESP 18
[2022-06-03] MEDS: ATORVASTATIN CA 20 MG TABLET (FP) PO SCH (21:19)
[2022-06-03] MEDS: MELATONIN 1 MG TABLET PO SCH (21:19)
[2022-06-04] MEDS: LEVOTHYROXINE NA 88 MCG TABLET (FP) PO SCH (06:13)
[2022-06-04] MEDS: INSULIN SLIDING SCALE (NOVOLOG) 1 VIAL SQ SCH ×2 (06:13→11:18)
[2022-06-04] MEDS: ESCITALOPRAM OXALATE 10 MG TABLET PO SCH (09:16)
[2022-06-04] MEDS: ASPIRIN COATED 81 MG TABLET.EC PO SCH (09:16)
[2022-06-04] MEDS: MEMANTINE HCL 5 MG TABLET (UD) PO SCH (09:16)
[2022-06-04] MEDS: CHOLECALCIFEROL (VIT D3) 1,000 UNIT (25 MCG) TABLET PO SCH (09:16)
[2022-06-04] MEDS: PANTOPRAZOLE 20 MG TABLET PO SCH (09:16)
[2022-06-04 13:46] VITALS: BP 115/62; PULSE 70; TEMP 98.8
== END 2022-06-04 15:50 | DRG 312 ==
LOC: JER 14:52 → JERBED 21:47 → J4S 06-02 01:45 → OBSVTOIN 06-02 13:04 → J4S 06-02 19:36
PROVIDERS: ADMIT Internal Medicine; ATTEND Family Medicine
DX: I95.1 Orthostatic hypotension (principal); S42.022A Displaced fracture of shaft of left clavicle, initial encounter for closed fracture; I10 Essential (primary) hypertension; E78.5 Hyperlipidemia, unspecified; F32.A Depression, unspecified; E11.9 Type 2 diabetes mellitus without complications; E03.9 Hypothyroidism, unspecified; M85.88 Other specified disorders of bone density and structure, other site; M81.0 Age-related osteoporosis without current pathological fracture; R53.1 Weakness; G30.8 Other Alzheimer's disease; F02.80 Dementia in other diseases classified elsewhere, unspecified severity, without behavioral disturbance, psychotic disturbance, mood disturbance, and anxiety; Z85.828 Personal history of other malignant neoplasm of skin; W18.39XA Other fall on same level, initial encounter; Y92.098 Other place in other non-institutional residence as the place of occurrence of the external cause
CPT/HCPCS: 0241U-QW; 36415; 70450-TC; 71045-TC-FY; 72125-TC; 72170-TC-FY; 73000-TC-LT-FY; 73030-TC-LT-FY; 73060-TC-LT-FY; 80048; 80053; 81003; 82550; 82962; 83735; 84443; 84484; 85025; 85610; 85730; 86850; 86900; 86901; 87086; 93005; 93010; 97116-GP; 97161-GP; 99285-25; G0378

== ENCOUNTER 2022-07-08 19:09 | Inpatient (IN) | payer OTHER, BC ==
[2022-07-08 20:55] LABS: EOS % 1.6 % (0-4.5); HEMATOCRIT 37.1 % (32.4-45.2); HEMOGLOBIN 12.6 GM/dL (10.7-15.3); LYMPH % 19.3 % (8-40); MCH 31.7 pg (25.7-33.7); MCHC 33.9 g/dl (32.0-36.0); MEAN CELL VOLUME 93.4 fl (80-96); MEAN PLT VOLUME 8.7 fl (7.5-11.1); MONO % 11.8 % (3.8-10.2); NEUT % 65.3 % (42.8-82.8); PLATELET COUNT 184 10^3/uL (134-434); RBC 3.97 M/mm3 (3.60-5.2); RDW 13.5 % (11.6-15.6); WHITE BLOOD COUNT 5.1 K/mm3 (4.0-10.0)
[2022-07-08 21:04] LABS: INR 1.17 (0.83-1.09); PROTHROMBIN TIME (PATIENT) 13.6 SEC (9.7-13.0)
[2022-07-08 21:07] LABS: ACTIVATED PTT 28.9 SECONDS (25.2-36.5)
[2022-07-08 21:11] LABS: POTASSIUM 3.4 mmol/L (3.5-5.1)
[2022-07-08 21:13] LABS: CALCIUM 8.9 mg/dL (8.5-10.1)
[2022-07-08 21:14] LABS: ALBUMIN 3.2 g/dl (3.4-5.0); BLOOD UREA NITROGEN 12.6 mg/dL (7-18); MAGNESIUM 1.6 mg/dL (1.8-2.4)
[2022-07-08 21:17] LABS: CREATININE 0.8 mg/dL (0.55-1.3)
[2022-07-08 21:18] LABS: BILIRUBIN,TOTAL 0.6 mg/dL (0.2-1)
[2022-07-08 21:19] LABS: TOT PROT 6.4 g/dl (6.4-8.2)
[2022-07-08] MEDS ORDERED: POTASSIUM CHLORIDE ORAL LIQUID 20 MEQ/15 ML PO ONE (21:28)
[2022-07-08] MEDS ORDERED: MAGNESIUM SULF 50% (8.12 MEQ/2 ML-1 GM VIAL) IVPB ONE (21:28)
[2022-07-08 21:54] LABS: EPI CELLS 0 /uL (0-25.1); HYALINE CASTS 0 /uL (0-3.1); URINE APPEARANCE CLEAR; URINE BACTERIA 946 /uL (0-1359); URINE BILIRUBIN NEGATIVE (NEGATIVE); URINE COLOR YELLOW; URINE GLUCOSE (UA) NEGATIVE (NEGATIVE); URINE KETONE NEGATIVE (NEGATIVE); URINE LEUK ESTERASE 1+ (NEGATIVE); URINE NITRITE NEGATIVE (NEGATIVE); URINE PROTEIN NEGATIVE (NEGATIVE); URINE UROBILINOGEN 0.2 mg/dL (0.2-1.0); URINE WBC 147 /uL (0-25.8)
[2022-07-08 21:56] LABS: URINE RBC 471.9 /uL (0-23.9)
[2022-07-08] MEDS ORDERED: CEFTRIAXONE 1 GM in DEXTROSE 5%-WATER - 100 ML IVPB ONE (22:01)
[2022-07-08] MEDS ORDERED: POTASSIUM CHLORIDE ORAL LIQUID 20 MEQ/15 ML ONE (22:18)
[2022-07-08] MEDS ORDERED: MAGNESIUM SULFATE IN WATER 2 GM/50 ML IVPB IVPB ONE (22:19)
[2022-07-08] MEDS ORDERED: CEFTRIAXONE 1 GM/50 ML BAG ONE (22:19)
[2022-07-09 06:00] VITALS: BMI 27.2
[2022-07-09] MEDS ORDERED: LEVOTHYROXINE NA 88 MCG TABLET (FP) PO SCH (07:15)
[2022-07-09 08:14] LABS: BASO % 1.7 % (0-2.0); EOS % 2.3 % (0-4.5); HEMATOCRIT 34.2 % (32.4-45.2); MCH 32.7 pg (25.7-33.7); MCHC 35.1 g/dl (32.0-36.0); MEAN CELL VOLUME 93.2 fl (80-96); MEAN PLT VOLUME 9.1 fl (7.5-11.1); PLATELET COUNT 162 10^3/uL (134-434); RBC 3.68 M/mm3 (3.60-5.2); RDW 13.1 % (11.6-15.6); WHITE BLOOD COUNT 4.3 K/mm3 (4.0-10.0)
[2022-07-09 08:26] LABS: POTASSIUM 3.7 mmol/L (3.5-5.1)
[2022-07-09 08:28] LABS: CALCIUM 8.2 mg/dL (8.5-10.1)
[2022-07-09 08:29] LABS: BLOOD UREA NITROGEN 10.4 mg/dL (7-18)
[2022-07-09 08:32] LABS: CREATININE 0.7 mg/dL (0.55-1.3)
[2022-07-09] MEDS ORDERED: CEFTRIAXONE 1 GM in DEXTROSE 5%-WATER - 50 ML IVPB SCH (10:00)
[2022-07-09] MEDS ORDERED: ATORVASTATIN CA 80 MG TABLET (FP) PO ONE (17:51)
[2022-07-09] MEDS ORDERED: ASPIRIN 325 MG TABLET PO ONE (17:51)
[2022-07-09] MEDS ORDERED: ASPIRIN 325 MG TABLET ONE (17:54)
[2022-07-10] MEDS: LEVOTHYROXINE NA 88 MCG TABLET (FP) PO SCH (06:06)
[2022-07-10 09:04] LABS: POTASSIUM 3.5 mmol/L (3.5-5.1)
[2022-07-10 09:07] LABS: CALCIUM 7.9 mg/dL (8.5-10.1)
[2022-07-10 09:08] LABS: ALBUMIN 2.9 g/dl (3.4-5.0); BLOOD UREA NITROGEN 9.8 mg/dL (7-18)
[2022-07-10 09:11] LABS: CREATININE 0.6 mg/dL (0.55-1.3)
[2022-07-10 09:13] LABS: BILIRUBIN,TOTAL 0.7 mg/dL (0.2-1); TOT PROT 5.8 g/dl (6.4-8.2)
[2022-07-10] MEDS: ASPIRIN 81 MG CHEWABLE TABLETS PO SCH (09:15)
[2022-07-10 09:18] LABS: HEMATOCRIT 35.4 % (32.4-45.2); MCH 31.9 pg (25.7-33.7); MEAN CELL VOLUME 93.9 fl (80-96); MEAN PLT VOLUME 8.8 fl (7.5-11.1); PLATELET COUNT 171 10^3/uL (134-434); RBC 3.77 M/mm3 (3.60-5.2); RDW 13.2 % (11.6-15.6); WHITE BLOOD COUNT 3.8 K/mm3 (4.0-10.0)
[2022-07-10] MEDS ORDERED: CEFTRIAXONE 1 GM in DEXTROSE 5%-WATER - 50 ML IVPB SCH (10:00)
[2022-07-10] MEDS: ATORVASTATIN CA 80 MG TABLET (FP) PO SCH (21:04)
[2022-07-11] MEDS: LEVOTHYROXINE NA 88 MCG TABLET (FP) PO SCH (06:15)
[2022-07-11 08:01] LABS: CHOLESTEROL 149 mg/dL (50-200)
[2022-07-11 08:03] LABS: LDL CHOLESTEROL (ONLY SJRH) 88 mg/dL (5-100)
[2022-07-11 08:04] LABS: HDL CHOLESTEROL 51 mg/dL (40-60)
[2022-07-11] MEDS: ASPIRIN 81 MG CHEWABLE TABLETS PO SCH (09:07)
[2022-07-11] MEDS: ATORVASTATIN CA 80 MG TABLET (FP) PO SCH (21:12)
[2022-07-12] MEDS: LEVOTHYROXINE NA 88 MCG TABLET (FP) PO SCH (06:27)
[2022-07-12 07:02] VITALS: RESP 18
[2022-07-12] MEDS: ASPIRIN 81 MG CHEWABLE TABLETS PO SCH (09:06)
[2022-07-12 11:24] VITALS: BP 155/87; PULSE 93; TEMP 98.5
== END 2022-07-12 13:10 | disposition home health service (06) | DRG 57 ==
LOC: JER 19:09 → JERBED 07-09 02:03 → J7W 07-09 05:19 → J4S 07-09 18:01
PROVIDERS: ADMIT Internal Medicine; ATTEND Family Medicine
DX: G30.9 Alzheimer's disease, unspecified (principal); N39.0 Urinary tract infection, site not specified; F02.80 Dementia in other diseases classified elsewhere, unspecified severity, without behavioral disturbance, psychotic disturbance, mood disturbance, and anxiety; I10 Essential (primary) hypertension; E78.5 Hyperlipidemia, unspecified; E11.9 Type 2 diabetes mellitus without complications; E03.9 Hypothyroidism, unspecified; F32.A Depression, unspecified; R53.1 Weakness
CPT/HCPCS: 0241U-QW; 36415; 70450-TC; 70551-TC; 71045-TC-FY; 80048; 80053; 80061; 81003; 82550; 82962; 83036; 83735; 84443; 84484; 85025; 85027; 85610; 85730; 86850; 86900; 86901; 87086; 93005; 93010; 93306-TC; 97116-GP; 97162-GP; 99285-25

== ENCOUNTER 2022-08-09 20:42 | Observation (INO) | payer OTHER, BC ==
[2022-08-09 20:47] VITALS: BMI 27.3
[2022-08-09 21:36] LABS: BASO % 0.4 % (0-2.0); EOS % 3.4 % (0-4.5); HEMATOCRIT 37.9 % (32.4-45.2); HEMOGLOBIN 12.7 GM/dL (10.7-15.3); LYMPH % 29.3 % (8-40); MCH 32.1 pg (25.7-33.7); MCHC 33.6 g/dl (32.0-36.0); MEAN CELL VOLUME 95.8 fl (80-96); MEAN PLT VOLUME 9.2 fl (7.5-11.1); MONO % 14.3 % (3.8-10.2); NEUT % 52.6 % (42.8-82.8); PLATELET COUNT 170 10^3/uL (134-434); RBC 3.96 M/mm3 (3.60-5.2); RDW 13.7 % (11.6-15.6); WHITE BLOOD COUNT 4.9 K/mm3 (4.0-10.0)
[2022-08-09 21:53] LABS: POTASSIUM 3.9 mmol/L (3.5-5.1)
[2022-08-09 21:55] LABS: ALBUMIN 3.1 g/dl (3.4-5.0); BLOOD UREA NITROGEN 20.3 mg/dL (7-18); CALCIUM 8.7 mg/dL (8.5-10.1); MAGNESIUM 1.8 mg/dL (1.8-2.4)
[2022-08-09 21:59] LABS: TOT PROT 6.2 g/dl (6.4-8.2)
[2022-08-09 22:01] LABS: BILIRUBIN,TOTAL 0.3 mg/dL (0.2-1)
[2022-08-10] MEDS ORDERED: DOCUSATE SODIUM 100 MG CAPSULE (FP) PO PRN (00:20)
[2022-08-10] MEDS ORDERED: ACETAMINOPHEN 325 MG TABLET (FP) PO PRN (00:20)
[2022-08-10] MEDS: INSULIN SLIDING SCALE (NOVOLOG) 1 VIAL SQ SCH ×4 (07:05→21:13)
[2022-08-10] MEDS ORDERED: MELATONIN 1 MG TABLET PO PRN (08:13)
[2022-08-10 08:15] LABS: BASO % 1.9 % (0-2.0); EOS % 2.5 % (0-4.5); HEMATOCRIT 37.8 % (32.4-45.2); HEMOGLOBIN 12.4 GM/dL (10.7-15.3); LYMPH % 42.3 % (8-40); MCH 31.2 pg (25.7-33.7); MCHC 32.8 g/dl (32.0-36.0); MEAN CELL VOLUME 94.9 fl (80-96); MEAN PLT VOLUME 9.4 fl (7.5-11.1); MONO % 13.4 % (3.8-10.2); NEUT % 39.9 % (42.8-82.8); PLATELET COUNT 178 10^3/uL (134-434); RBC 3.99 M/mm3 (3.60-5.2); RDW 13.2 % (11.6-15.6); WHITE BLOOD COUNT 4.5 K/mm3 (4.0-10.0)
[2022-08-10 08:31] LABS: POTASSIUM 3.8 mmol/L (3.5-5.1)
[2022-08-10 08:35] LABS: BLOOD UREA NITROGEN 17.4 mg/dL (7-18); CALCIUM 8.5 mg/dL (8.5-10.1)
[2022-08-10 08:36] LABS: MAGNESIUM 1.8 mg/dL (1.8-2.4)
[2022-08-10 08:39] LABS: CREATININE 0.8 mg/dL (0.55-1.3); PHOSPHOROUS 3.6 mg/dL (2.5-4.9)
[2022-08-10] MEDS: LEVOTHYROXINE NA 88 MCG TABLET (FP) PO SCH (10:01)
[2022-08-10] MEDS: CHOLECALCIFEROL (VIT D3) 1,000 UNIT (25 MCG) TABLET PO SCH (10:01)
[2022-08-10] MEDS: ESCITALOPRAM OXALATE 10 MG TABLET PO SCH (10:01)
[2022-08-10] MEDS: ASPIRIN COATED 81 MG TABLET.EC PO SCH (10:01)
[2022-08-10] MEDS: PANTOPRAZOLE 20 MG TABLET PO SCH (10:01)
[2022-08-10] MEDS: FLUDROCORTISONE ACETATE 0.1 MG TABLET (FP) PO SCH (11:34)
[2022-08-10] MEDS: metoPROLOL SUCCINATE 25 MG TAB.SR.24H (FP) PO SCH (21:01)
[2022-08-10] MEDS ORDERED: ATORVASTATIN CA 20 MG TABLET (FP) PO SCH (22:00)
[2022-08-11] MEDS: INSULIN SLIDING SCALE (NOVOLOG) 1 VIAL SQ SCH ×2 (06:08→11:54)
[2022-08-11] MEDS: LEVOTHYROXINE NA 88 MCG TABLET (FP) PO SCH (06:08)
[2022-08-11 06:18] VITALS: RESP 18
[2022-08-11 08:18] LABS: BASO % 2.4 % (0-2.0); EOS % 3.4 % (0-4.5); HEMATOCRIT 37.2 % (32.4-45.2); HEMOGLOBIN 12.6 GM/dL (10.7-15.3); LYMPH % 34.3 % (8-40); MCH 31.7 pg (25.7-33.7); MCHC 33.8 g/dl (32.0-36.0); MEAN PLT VOLUME 9.4 fl (7.5-11.1); MONO % 16.4 % (3.8-10.2); NEUT % 43.5 % (42.8-82.8); PLATELET COUNT 166 10^3/uL (134-434); RBC 3.96 M/mm3 (3.60-5.2); RDW 13.6 % (11.6-15.6); WHITE BLOOD COUNT 4.5 K/mm3 (4.0-10.0)
[2022-08-11 08:32] LABS: POTASSIUM 3.9 mmol/L (3.5-5.1)
[2022-08-11 08:46] LABS: CALCIUM 8.6 mg/dL (8.5-10.1)
[2022-08-11 08:47] LABS: ALBUMIN 3.2 g/dl (3.4-5.0); BLOOD UREA NITROGEN 17.6 mg/dL (7-18)
[2022-08-11 08:50] LABS: CREATININE 0.7 mg/dL (0.55-1.3)
[2022-08-11 08:53] LABS: TOT PROT 6.1 g/dl (6.4-8.2)
[2022-08-11 08:57] LABS: EPI CELLS 5 /uL (0-25.1); HYALINE CASTS 0 /uL (0-3.1); URINE APPEARANCE CLEAR; URINE BACTERIA 36 /uL (0-1359); URINE BILIRUBIN NEGATIVE (NEGATIVE); URINE COLOR YELLOW; URINE GLUCOSE (UA) NEGATIVE (NEGATIVE); URINE KETONE NEGATIVE (NEGATIVE); URINE LEUK ESTERASE TRACE (NEGATIVE); URINE NITRITE NEGATIVE (NEGATIVE); URINE PROTEIN NEGATIVE (NEGATIVE); URINE RBC 11 /uL (0-23.9); URINE UROBILINOGEN 0.2 mg/dL (0.2-1.0); URINE WBC 33 /uL (0-25.8)
[2022-08-11] MEDS: ASPIRIN COATED 81 MG TABLET.EC PO SCH (09:48)
[2022-08-11] MEDS: CHOLECALCIFEROL (VIT D3) 1,000 UNIT (25 MCG) TABLET PO SCH (09:48)
[2022-08-11] MEDS: ESCITALOPRAM OXALATE 10 MG TABLET PO SCH (09:48)
[2022-08-11] MEDS: PANTOPRAZOLE 20 MG TABLET PO SCH (09:48)
[2022-08-11] MEDS: FLUDROCORTISONE ACETATE 0.1 MG TABLET (FP) PO SCH (09:48)
[2022-08-11] MEDS: metoPROLOL SUCCINATE 25 MG TAB.SR.24H (FP) PO SCH (09:48)
[2022-08-11 10:07] VITALS: TEMP 97.8
[2022-08-11 14:43] VITALS: BP 118/70; PULSE 80
[2022-08-11] MEDS ORDERED: MEMANTINE HCL 5 MG TABLET (UD) PO SCH (22:00)
== END 2022-08-11 14:57 | disposition home health service (06) ==
LOC: JER 20:42 → JERBED 21:39 → J4W 08-10 03:04
PROVIDERS: ADMIT Internal Medicine; ATTEND Family Medicine
DX: G93.41 Metabolic encephalopathy (principal); R55 Syncope and collapse; R73.03 Prediabetes; E78.5 Hyperlipidemia, unspecified; I10 Essential (primary) hypertension; E03.9 Hypothyroidism, unspecified; I49.9 Cardiac arrhythmia, unspecified; H53.8 Other visual disturbances; R79.89 Other specified abnormal findings of blood chemistry; Z85.828 Personal history of other malignant neoplasm of skin; Z87.891 Personal history of nicotine dependence; Z88.8 Allergy status to other drugs, medicaments and biological substances
CPT/HCPCS: 36415; 70450-TC; 71045-TC-FY; 80048; 80053; 81003; 82962; 83735; 84100; 84439; 84443; 84484; 85025; 87086; 93005; 93010; 97116-GP; 97161-GP; 99285-25; G0378

== ENCOUNTER 2023-06-02 11:51 | Emergency (ER) | payer OTHER, BC ==
[2023-06-02 12:08] VITALS: RESP 20; BMI 28.1
[2023-06-02] MEDS ORDERED: ACETAMINOPHEN 500 MG TABLET (FP) ONE (12:58)
[2023-06-02] MEDS: ACETAMINOPHEN 500 MG TABLET (FP) PO ONE (13:02)
[2023-06-02 16:56] VITALS: BP 136/76; PULSE 96; TEMP 98.2
== END 2023-06-02 17:09 | disposition home or self-care (01) ==
LOC: JER 11:51
DX: M25.551 Pain in right hip (principal); M79.604 Pain in right leg
CPT/HCPCS: 73502-TC-RT-FY; 73552-TC-RT-FY; 73564-TC-RT-FY; 99284-25

== ENCOUNTER 2023-08-28 13:30 | Inpatient (IN) | payer OTHER, BC ==
[2023-08-28] MEDS ORDERED: ACETAMINOPHEN INJECTION 100 ML IVPB ONE (14:58)
[2023-08-28] MEDS: ACETAMINOPHEN 1000 MG/100 ML BAG IVPB ONE (16:06)
[2023-08-28 16:11] LABS: BASO % 1.2 % (0-2.0); EOS % 0.8 % (0-4.5); HEMATOCRIT 41.7 % (32.4-45.2); HEMOGLOBIN 14.2 GM/dL (10.7-15.3); LYMPH % 16.7 % (8-40); MCH 31.6 pg (25.7-33.7); MCHC 34.2 g/dl (32.0-36.0); MEAN CELL VOLUME 92.3 fl (80-96); MEAN PLT VOLUME 8.3 fl (7.5-11.1); MONO % 7.3 % (3.8-10.2); PLATELET COUNT 199 10^3/uL (134-434); RBC 4.51 M/mm3 (3.60-5.2); RDW 13.6 % (11.6-15.6); WHITE BLOOD COUNT 7.6 K/mm3 (4.0-10.0)
[2023-08-28 16:17] LABS: INR 1.14 (0.83-1.09); PROTHROMBIN TIME (PATIENT) 12.8 SEC (9.7-13.0)
[2023-08-28 16:20] LABS: ACTIVATED PTT 30.8 SECONDS (25.2-36.5)
[2023-08-28 16:37] LABS: POTASSIUM 3.9 mmol/L (3.5-5.1)
[2023-08-28 16:39] LABS: CALCIUM 8.9 mg/dL (8.5-10.1)
[2023-08-28 16:40] LABS: ALBUMIN 3.5 g/dl (3.4-5.0); BLOOD UREA NITROGEN 15.7 mg/dL (7-18)
[2023-08-28 16:43] LABS: CREATININE 0.9 mg/dL (0.55-1.3)
[2023-08-28 16:44] LABS: BILIRUBIN,TOTAL 0.6 mg/dL (0.2-1)
[2023-08-28 17:19] LABS: PH,URINE 8.5 (5.0-8.0); URINE APPEARANCE CLEAR; URINE BILIRUBIN NEGATIVE (NEGATIVE); URINE COLOR YELLOW; URINE GLUCOSE (UA) NEGATIVE (NEGATIVE); URINE KETONE NEGATIVE (NEGATIVE); URINE LEUK ESTERASE NEGATIVE (NEGATIVE); URINE NITRITE NEGATIVE (NEGATIVE); URINE PROTEIN NEGATIVE (NEGATIVE); URINE UROBILINOGEN 0.2 mg/dL (0.2-1.0)
[2023-08-28] MEDS ORDERED: ACETAMINOPHEN 325 MG TABLET (FP) PO PRN (18:19)
[2023-08-28] MEDS: ATORVASTATIN CA 20 MG TABLET (FP) PO SCH (22:18)
[2023-08-29 05:01] VITALS: BMI 26.0
[2023-08-29 07:46] LABS: BASO % 0.9 % (0-2.0); HEMATOCRIT 40.2 % (32.4-45.2); HEMOGLOBIN 13.4 GM/dL (10.7-15.3); MCH 31.3 pg (25.7-33.7); MCHC 33.4 g/dl (32.0-36.0); MEAN CELL VOLUME 93.8 fl (80-96); MEAN PLT VOLUME 8.9 fl (7.5-11.1); MONO % 12.6 % (3.8-10.2); NEUT % 59.5 % (42.8-82.8); PLATELET COUNT 176 10^3/uL (134-434); RBC 4.28 M/mm3 (3.60-5.2); RDW 13.5 % (11.6-15.6); WHITE BLOOD COUNT 6.2 K/mm3 (4.0-10.0)
[2023-08-29 08:05] LABS: POTASSIUM 3.7 mmol/L (3.5-5.1)
[2023-08-29 08:09] LABS: CALCIUM 8.4 mg/dL (8.5-10.1)
[2023-08-29 08:10] LABS: ALBUMIN 3.2 g/dl (3.4-5.0); BLOOD UREA NITROGEN 15.7 mg/dL (7-18); MAGNESIUM 1.7 mg/dL (1.8-2.4)
[2023-08-29 08:13] LABS: CREATININE 0.8 mg/dL (0.55-1.3); PHOSPHOROUS 2.4 mg/dL (2.5-4.9)
[2023-08-29 08:14] LABS: BILIRUBIN,TOTAL 0.7 mg/dL (0.2-1); TOT PROT 6.6 g/dl (6.4-8.2)
[2023-08-29] MEDS: FLUDROCORTISONE ACETATE 0.1 MG TABLET (FP) PO SCH (09:50)
[2023-08-29] MEDS: ENOXAPARIN NA (PORCINE) 40 MG/0.4 ML DISP.SYRIN SQ SCH (09:50)
[2023-08-29] MEDS: amLODIPine BESYLATE 5 MG TABLET (FP) PO SCH (09:50)
[2023-08-29] MEDS: ESCITALOPRAM OXALATE 20 MG TABLET PO SCH (09:50)
[2023-08-29] MEDS: NAPH,MB-DB/K PH,MBDB POWDER PACKET PO ONE (14:50)
[2023-08-29] MEDS: MAGNESIUM SULF 50% (8.12 MEQ/2 ML-1 GM VIAL) IVPB ONE (14:50)
[2023-08-29] MEDS ORDERED: MEMANTINE HCL 5 MG TABLET (UD) PO SCH (22:00)
[2023-08-30] MEDS: MEMANTINE HCL 5 MG TABLET (UD) PO SCH (21:01)
[2023-08-31 08:36] LABS: POTASSIUM 3.8 mmol/L (3.5-5.1)
[2023-08-31 08:42] LABS: CALCIUM 8.2 mg/dL (8.5-10.1)
[2023-08-31 08:43] LABS: ALBUMIN 3.2 g/dl (3.4-5.0); BLOOD UREA NITROGEN 14.3 mg/dL (7-18); MAGNESIUM 1.9 mg/dL (1.8-2.4)
[2023-08-31 08:46] LABS: CREATININE 0.7 mg/dL (0.55-1.3)
[2023-08-31 08:47] LABS: TOT PROT 6.5 g/dl (6.4-8.2)
[2023-08-31 08:48] LABS: BILIRUBIN,TOTAL 0.9 mg/dL (0.2-1)
[2023-08-31] MEDS: CALCIUM 500MG/VIT-D 200 UNITS COMBO TABLET (FP) PO SCH (10:15)
[2023-08-31] MEDS: CALCITONIN - SALMON SYNTHETIC 200 UNITS/SPRAY NS SCH (10:16)
[2023-08-31 15:35] VITALS: RESP 20
[2023-08-31 19:08] VITALS: BP 125/87; PULSE 112; TEMP 98.1
== END 2023-08-31 20:03 | DRG 552 ==
LOC: JER 13:30 → JERBED 17:19 → J4W 21:10
PROVIDERS: ADMIT Internal Medicine; ATTEND Internal Medicine
DX: S32.030A Wedge compression fracture of third lumbar vertebra, initial encounter for closed fracture (principal); E03.9 Hypothyroidism, unspecified; E11.9 Type 2 diabetes mellitus without complications; I10 Essential (primary) hypertension; E78.5 Hyperlipidemia, unspecified; W19.XXXA Unspecified fall, initial encounter; Y93.9 Activity, unspecified; Y92.89 Other specified places as the place of occurrence of the external cause; Y99.9 Unspecified external cause status
CPT/HCPCS: 0241U-QW; 36415; 70450-TC; 71045-TC-FY; 72125-TC; 72131-TC; 72170-TC-FY; 72192-TC; 73502-TC-RT-FY; 73700-TC-RT; 74177-TC; 80053; 81003; 82962; 83735; 84100; 84436; 84443; 84484; 85025; 85610; 85730; 86850; 86900; 86901; 87086; 93005; 93010; 97116-GP; 97162-GP; 99285-25; J0131; Q9967

== ENCOUNTER 2023-09-30 05:14 | Day surgery (SDC) | payer OTHER, BC ==
[2023-09-29 13:02] VITALS: BMI 24.3
[2023-09-30] MEDS: TETRACAINE 0.5% OPHTH SOLN 2 ML BOTTLE OD ONE
[~2023-09-30 05:14] MED LIST: ACETAMINOPHEN 325 MG TABLET (FP) PO PRN
[2023-09-30] MEDS ORDERED: BSS (NA/CA/MG/K) BALANCED SALT SOLUTION OPHTH SOLN 15 ML BOTTLE ONE (07:22)
[2023-09-30] MEDS ORDERED: TETRACAINE 0.5% OPHTH SOLN 2 ML BOTTLE ONE (07:22)
[2023-09-30] MEDS ORDERED: LIDOCAINE HCL/PF 1% SDV 5ML VIAL ONE (07:22)
[2023-09-30] MEDS ORDERED: POVIDONE-IODINE 5% OPHTHALMIC PREP 30 ML SOLUTION ONE (07:22)
[2023-09-30] MEDS ORDERED: TROPICAMIDE 1% OPHTH SOLN 15 ML BOTTLE ONE (10:04)
[2023-09-30] MEDS ORDERED: KETOROLAC TROMETHAMINE 0.5% EYE DROP 1 DROP DROPS ONE (10:04)
[2023-09-30] MEDS ORDERED: CYCLOPENTOLATE HCL 1% OPHTH SOLN 2 ML BOTTLE ONE (10:04)
[2023-09-30] MEDS: KETOROLAC TROMETHAMINE 0.5% EYE DROP 1 DROP DROPS OP SCH (10:45)
[2023-09-30] MEDS: POLYMYXIN B SULFATE/TMP 10 ML OPHTHALMIC SOLUTION OD SCH (10:45)
[2023-09-30] MEDS: PHENYLEPHRINE 2.5% OPHTH SOLN 15 ML BOTTLE OP SCH (10:46)
[2023-09-30] MEDS: TROPICAMIDE 1% OPHTH SOLN 15 ML BOTTLE OP SCH (10:46)
[2023-09-30] MEDS: CYCLOPENTOLATE HCL 1% OPHTH SOLN 2 ML BOTTLE OP SCH (10:46)
[2023-09-30] MEDS ORDERED: MIDAZOLAM HCL 2 MG/2 ML SINGLE DOSE VIAL ONE (12:07)
[2023-09-30] MEDS ORDERED: PROPOFOL 20 ML ONE (12:07)
[2023-09-30] MEDS: POVIDONE-IODINE 5% OPHTHALMIC PREP 30 ML SOLUTION OD ONE ×2 (12:25)
[2023-09-30] MEDS: BSS (NA/CA/MG/K) BALANCED SALT SOLUTION OPHTH SOLN 15 ML BOTTLE OD ONE ×2 (12:31)
[2023-09-30] MEDS: LIDOCAINE HCL 1% PRESERVATIVE FREE - 30ML VIAL IO ONE ×2 (12:31)
[2023-09-30] MEDS: CHONDROITIN SU A/HYALUR SOD 1 KIT IO ONE ×2 (12:31)
[2023-09-30] MEDS ORDERED: DEXAMETHASONE SOD PHOSPHATE 4 MG/1 ML VIAL ONE (12:34)
[2023-09-30] MEDS ORDERED: ONDANSETRON 4 MG/2 ML VIAL ONE (12:34)
[2023-09-30] MEDS: EPINEPHrine 1:1,000 1,000 MCG/ML ML SQ ONE ×2 (12:38)
[2023-09-30] MEDS ORDERED: ONDANSETRON 4 MG/2 ML VIAL IVPUSH PRN (13:09)
[2023-09-30] MEDS ORDERED: LACTATED RINGERS SOLUTION 1,000 ML IV SCH (13:15)
[2023-09-30] MEDS: ACETAMINOPHEN INJECTION 100 ML IVPB ONE (13:50)
[2023-09-30] MEDS: ACETAMINOPHEN 1000 MG/100 ML BAG IVPB ONE (13:50)
[2023-09-30 15:18] VITALS: RESP 20
[2023-09-30 15:23] VITALS: BP 145/56; PULSE 69; TEMP 97.5
== END 2023-09-30 15:15 | disposition home or self-care (01) ==
LOC: JASU-SURG 05:14
PROVIDERS: ATTEND Ophthalmology
PROC: 08RJ3JZ Replacement of Right Lens with Synthetic Substitute, Percutaneous Approach (ICD-10-PCS; principal; 2023-09-30 12:00)
DX: H26.9 Unspecified cataract (principal)
CPT/HCPCS: 94760; J0131; V2632

== ENCOUNTER 2024-02-12 12:20 | Inpatient (IN) | payer OTHER, BC ==
[2024-02-12 14:38] LABS: EOS % 1.4 % (0-4.5); HEMATOCRIT 37.2 % (32.4-45.2); HEMOGLOBIN 12.4 GM/dL (10.7-15.3); LYMPH % 15.9 % (8-40); MCH 30.2 pg (25.7-33.7); MCHC 33.4 g/dl (32.0-36.0); MEAN CELL VOLUME 90.4 fl (80-96); MEAN PLT VOLUME 9.4 fl (7.5-11.1); MONO % 6.2 % (3.8-10.2); NEUT % 75.5 % (42.8-82.8); PLATELET COUNT 213 10^3/uL (134-434); RBC 4.11 M/mm3 (3.60-5.2); RDW 15.1 % (11.6-15.6); WHITE BLOOD COUNT 6.5 K/mm3 (4.0-10.0)
[2024-02-12 14:46] LABS: INR 1.13 (0.83-1.09); PROTHROMBIN TIME (PATIENT) 12.7 SEC (9.7-13.0)
[2024-02-12 14:49] LABS: ACTIVATED PTT 22.9 SECONDS (25.2-36.5)
[2024-02-12 14:57] LABS: MAGNESIUM 1.8 mg/dL (1.8-2.4)
[2024-02-12 16:40] LABS: POTASSIUM 4.5 mmol/L (3.5-5.1)
[2024-02-12 16:43] LABS: ALBUMIN 3.1 g/dl (3.4-5.0); BLOOD UREA NITROGEN 12.6 mg/dL (7-18)
[2024-02-12 16:46] LABS: CREATININE 0.7 mg/dL (0.55-1.3)
[2024-02-12 16:48] LABS: BILIRUBIN,TOTAL 0.6 mg/dL (0.2-1); TOT PROT 6.6 g/dl (6.4-8.2)
[2024-02-12 19:06] LABS: EPI CELLS 17 /uL (0-25.1); HYALINE CASTS 8 /uL (0-3.1); URINE APPEARANCE TURBID; URINE BACTERIA >9,000 /uL (0-1359); URINE BILIRUBIN NEGATIVE (NEGATIVE); URINE COLOR YELLOW; URINE GLUCOSE (UA) NEGATIVE (NEGATIVE); URINE KETONE NEGATIVE (NEGATIVE); URINE LEUK ESTERASE 3+ (NEGATIVE); URINE NITRITE NEGATIVE (NEGATIVE); URINE PROTEIN 2+ (NEGATIVE); URINE RBC 133 /uL (0-23.9); URINE WBC 7591 /uL (0-25.8)
[2024-02-12] MEDS ORDERED: CEFTRIAXONE 1 G/50 ML PREMIX 50 ML IVPB ONE (20:46)
[2024-02-12] MEDS: CEFTRIAXONE 1 G/50 ML PREMIX 50 ML IVPB ONE (20:47)
[2024-02-12] MEDS: ATORVASTATIN CA 20 MG TABLET (FP) PO SCH (23:29)
[2024-02-12] MEDS: APIXABAN 5 MG TABLET PO SCH (23:29)
[2024-02-13 00:01] VITALS: BMI 20.3
[2024-02-13] MEDS: LEVOTHYROXINE NA 88 MCG TABLET (FP) PO SCH (07:04)
[2024-02-13 08:24] LABS: BASO % 1.9 % (0-2.0); EOS % 1.6 % (0-4.5); HEMATOCRIT 34.5 % (32.4-45.2); HEMOGLOBIN 11.1 GM/dL (10.7-15.3); LYMPH % 39.4 % (8-40); MCH 29.4 pg (25.7-33.7); MCHC 32.3 g/dl (32.0-36.0); MEAN CELL VOLUME 91.2 fl (80-96); MEAN PLT VOLUME 8.7 fl (7.5-11.1); MONO % 11.2 % (3.8-10.2); NEUT % 45.9 % (42.8-82.8); PLATELET COUNT 173 10^3/uL (134-434); RBC 3.78 M/mm3 (3.60-5.2); RDW 14.9 % (11.6-15.6); WHITE BLOOD COUNT 5.4 K/mm3 (4.0-10.0)
[2024-02-13 08:44] LABS: POTASSIUM 3.4 mmol/L (3.5-5.1)
[2024-02-13 08:46] LABS: CALCIUM 8.6 mg/dL (8.5-10.1)
[2024-02-13 08:47] LABS: ALBUMIN 2.8 g/dl (3.4-5.0); BLOOD UREA NITROGEN 13.1 mg/dL (7-18); MAGNESIUM 1.6 mg/dL (1.8-2.4)
[2024-02-13 08:50] LABS: CREATININE 0.7 mg/dL (0.55-1.3); PHOSPHOROUS 3.4 mg/dL (2.5-4.9)
[2024-02-13 08:51] LABS: BILIRUBIN,TOTAL 0.6 mg/dL (0.2-1); TOT PROT 5.7 g/dl (6.4-8.2)
[2024-02-13] MEDS: CEFTRIAXONE 1 G/50 ML PREMIX 50 ML IVPB SCH (10:54)
[2024-02-13] MEDS: ESCITALOPRAM OXALATE 10 MG TABLET PO SCH (10:54)
[2024-02-13] MEDS: POTASSIUM CHLORIDE ORAL LIQUID 20 MEQ/15 ML PO ONE (15:35)
[2024-02-14 07:44] LABS: EOS % 3.9 % (0-4.5); HEMATOCRIT 35.9 % (32.4-45.2); HEMOGLOBIN 11.7 GM/dL (10.7-15.3); LYMPH % 39.7 % (8-40); MCH 29.5 pg (25.7-33.7); MCHC 32.5 g/dl (32.0-36.0); MEAN CELL VOLUME 90.8 fl (80-96); MONO % 11.3 % (3.8-10.2); NEUT % 44.1 % (42.8-82.8); PLATELET COUNT 170 10^3/uL (134-434); RBC 3.95 M/mm3 (3.60-5.2); RDW 14.8 % (11.6-15.6); WHITE BLOOD COUNT 4.9 K/mm3 (4.0-10.0)
[2024-02-14 08:05] LABS: POTASSIUM 3.9 mmol/L (3.5-5.1)
[2024-02-14 08:08] LABS: ALBUMIN 2.9 g/dl (3.4-5.0); CALCIUM 8.5 mg/dL (8.5-10.1)
[2024-02-14 08:09] LABS: BLOOD UREA NITROGEN 13.7 mg/dL (7-18)
[2024-02-14 08:11] LABS: CREATININE 0.7 mg/dL (0.55-1.3)
[2024-02-14 08:13] LABS: BILIRUBIN,TOTAL 0.5 mg/dL (0.2-1)
[2024-02-15] MEDS: QUEtiapine FUMARATE 25 MG TABLET PO SCH (21:56)
[2024-02-16] MEDS: QUEtiapine FUMARATE 25 MG TABLET PO SCH (10:06)
[2024-02-17 11:37] VITALS: BP 121/82; PULSE 93; RESP 18; TEMP 97.6
== END 2024-02-17 13:03 | disposition home or self-care (01) | DRG 690 ==
LOC: JER 12:20 → JERBED 16:48 → OBSVTOIN 18:06 → J4W 21:33
PROVIDERS: ADMIT Internal Medicine; ATTEND Internal Medicine
DX: N39.0 Urinary tract infection, site not specified (principal); E78.5 Hyperlipidemia, unspecified; R55 Syncope and collapse; I10 Essential (primary) hypertension; F03.90 Unspecified dementia, unspecified severity, without behavioral disturbance, psychotic disturbance, mood disturbance, and anxiety; B96.4 Proteus (mirabilis) (morganii) as the cause of diseases classified elsewhere; E11.9 Type 2 diabetes mellitus without complications; E03.9 Hypothyroidism, unspecified; I48.91 Unspecified atrial fibrillation; F32.A Depression, unspecified; R41.82 Altered mental status, unspecified
CPT/HCPCS: 36415; 70450-TC; 71045-TC-FY; 80053; 81003; 82550; 83036; 83735; 84100; 84443; 84484; 85025; 85610; 85730; 86850; 86900; 86901; 87086; 87186; 93005; 93010; 93306-TC; 93880-TC; 97116-GP; 97162-GP; 99285-25; G0378